=== PATIENT | female | born 1950 | race Hispanic/Latino ===

== ENCOUNTER 2017-07-31 12:23 | Outpatient (CLI) | payer MEDICARE ==
--- NOTE | 2017-07-31 16:51 | MMO ---
BILATERAL SCREENING MAMMOGRAMS: DATE: 07/31/17 Reference made to prior mammogram of 10/16/15. This patient's mammogram was interpreted with the assistance of computer-aided detection. FINDINGS: There is heterogeneously dense breast parenchyma bilaterally, which limits the sensitivity of mammog brayden. There are benign-appearing bilateral punctate breast calcifications, stable. No new dominant mass or suspicious clustering of microcalcification. IMPRESSION: BIRADS 2: Benign Finding(s) Annual screening mammography is recommended. POS: [facility]
== END 2017-07-31 12:24 | disposition home or self-care (01) ==
LOC: SCSMAMMO 12:23
PROVIDERS: ATTEND Family Medicine
DX: Z12.31 Encounter for screening mammogram for malignant neoplasm of breast (principal)
CPT/HCPCS: 77067; G0202

== ENCOUNTER 2017-10-14 13:47 | Outpatient (CLI) | payer MEDICARE ==
[~2017-10-14 13:47] MED LIST: Iopamidol 370 76% 100 ML VIAL ONE
--- NOTE | 2017-10-14 16:15 | CT ---
CT ARTERIOGRAM NECK WITH IV CONTRAST AND 3D MIP IMAGING: History: Vascular disease. Carotid stenosis. Abnormal sonogram. FINDINGS: Post-operative changes in the mediastinum are partially visualized. There is bovine origin of the gre at vessels at the aortic arch. There is calcification throughout the arterial structures. The vertebr al arteries are patent. Mild stenosis of the proximal left subclavian artery is evident. At the right carotid bifurcation, there is calcified and noncalcified plaque resulting in a long segm ent of approximately 50% stenosis. At the left carotid bifurcation, there is prominent calcified and noncalcified plaque with a long seg ment stenosis up to 80%. IMPRESSION: 1. Atherosclerosis with significant bilateral internal carotid artery stenoses, left greater than rig ht, as detailed above. POS: [facility]
== END 2017-10-14 13:48 | disposition home or self-care (01) ==
LOC: CT 13:47
PROVIDERS: ATTEND Thoracic Surgery (Cardiothoracic Vascular Surgery)
DX: I65.8 Occlusion and stenosis of other precerebral arteries (principal); I70.90 Unspecified atherosclerosis; I65.23 Occlusion and stenosis of bilateral carotid arteries
CPT/HCPCS: 70498

== ENCOUNTER 2017-10-30 05:47 | Inpatient (IN) | payer MEDICARE ==
[2017-10-30] MEDS ORDERED: CEFAZOLIN/Water 2 GM/20 ML SYRINGE ONE (06:13)
[2017-10-30] MEDS ORDERED: Heparin 5,000 UNITS/ML VIAL ONE (06:36)
[2017-10-30] MEDS ORDERED: Protamine Sulfate 50 MG/5 ML VIAL ONE ×2 (06:36→13:36)
[2017-10-30 06:51] LABS: Hemoglobin 13.3 g/dL (12.0-16.0); Mean Corpuscular HGB CONC 33.3 g/dL (32.0-36.0); Mean Corpuscular Hemoglobin 32.6 pg (27.0-31.0); Mean Platelet Volume 10.2 fL (7.4-10.4); Platelet Count 186 thou/uL (130-400); RBC Distribution Width 11.8 % (11.5-14.5); Red Blood Cell (RBC) Count 4.08 mill/uL (4.20-5.40); White Blood Cell (WBC) Count 7.6 thou/uL (4.8-10.8)
[2017-10-30] MEDS ORDERED: Midazolam HCl 2 mg/2 ml Vial ONE (07:05)
[2017-10-30 07:10] LABS: Anion Gap 17 mmol/L (10-20); BUN (Urea Nitrogen) 43 mg/dL (9.8-20.1); Calc. Creatinine Clearance 45 mL/min (70-130); Calcium 10.2 mg/dL (7.8-10.44); Carbon Dioxide 22 mmol/L (23-31); Chloride 101 mmol/L (98-107); Estimated GFR-MDRD 34; Glucose 171 mg/dL (80-115); Potassium 4.5 mmol/L (3.5-5.1); Sodium 135 mmol/L (136-145)
[2017-10-30] MEDS ORDERED: Fentanyl 100 MCG/2 ML VIAL ONE ×2 (07:40→10:25)
[2017-10-30] MEDS ORDERED: PHENYLEPHRINE-NS 100 MCG/ML 10 ML SYRINGE ONE ×2 (10:01→13:36)
[2017-10-30] MEDS ORDERED: Morphine Sulfate 2 MG/ML SYRINGE SLOW IVP PRN (10:12)
[2017-10-30] MEDS ORDERED: Promethazine HCl 25 MG/ML VIAL IM PRN ×2 (10:12→10:44)
[2017-10-30] MEDS ORDERED: Promethazine HCl 25 MG/ML VIAL SLOW IVP PRN (10:12)
[2017-10-30] MEDS ORDERED: Ondansetron HCl/PF 4 MG/2 ML Vial IVP PRN ×2 (10:12→10:44)
--- NOTE | 2017-10-30 10:15 | OP ---
PREOPERATIVE DIAGNOSIS: Severe left carotid artery stenosis. POSTOPERATIVE DIAGNOSIS: Severe left carotid artery stenosis. SURGEON: Thanh Delcid M.D. CITY PLANNING ENGINEER: None. COUNTS: Sponge and needle counts correct. ANESTHESIA: General. OPERATION PERFORMED: Left carotid endarterectomy with bovine pericardium patch angioplasty. FINDINGS AT OPERATION: Near occlusive plaque involving the bulb and proximal ICA. DESCRIPTION OF PROCEDURE: The patient was taken to the operating room. Following the induction of general endotracheal anesthesia, the patient was prepped and draped in the usual sterile fashion. Skin incision was made parallel to the anterior border of the sternocleidomastoid muscle and deepened through the subcutaneous tissues and platysma. Carotid sheath was entered, identifying the vagus nerve in its proper posterior position. Isolation of the CCA, ECA, and ICA was performed. As expected, she had a very deep neck and high bifurcation. Hypoglossal nerve was visualized, however, not manipulated. Common facial vein was divided between fine silk ties and Hemoclips. Heparin dose was given. Fine vascular clamps were applied to the above-mentioned vessels. Arteriotomy was created extending across the bulb and ICA to a point above the plaque. The #8 shunt was employed. Endarterectomy was then performed in standard fashion. An excellent feathering point was achieved in the ICA requiring no tacking sutures. Meticulous attention was made to retrieving all residual debris including before and after irrigation with heparinized saline. The arteriotomy was then closed with the bovine pericardium patch and running 6-0 Prolene suture. Prior to securing the patch the shunt was removed, the ICA backflushed, and the site again irrigated with heparinized saline. Clamps were removed from the ECA, CCA, and ICA in that order. Heparin was partially reversed with protamine. Copious irrigation was performed. Meticulous hemostasis was assured. Wound was then closed in layers with running 2-0 Vicryl sutures followed by skin closure with a 4-0 Vicryl subcuticular stitch. Dermabond was applied. The patient was subsequently awakened and taken to the recovery room. Blood loss negligible. MTDD
[2017-10-30] MEDS ORDERED: DOPamine 400 MG/D5W 250 ML 250 ML ONE (10:18)
[2017-10-30] MEDS ORDERED: Ondansetron HCl/PF 4 MG/2 ML Vial ONE (10:40)
[2017-10-30] MEDS ORDERED: Sodium Chloride 0.9% 1,000 ML IV SCH (10:44)
[2017-10-30] MEDS ORDERED: Fentanyl 100 MCG/2 ML VIAL SLOW IVP PRN ×2 (10:44)
[2017-10-30] MEDS ORDERED: Acetaminophen 325 MG TAB PO PRN (10:44)
[2017-10-30] MEDS ORDERED: DOPamine 400 MG/D5W 250 ML 250 ML IVPB PRN (10:44)
[2017-10-30] MEDS ORDERED: Nitroglycerin 50 MG/250 ML BOT 250 ML IVPB PRN (10:44)
[2017-10-30] MEDS ORDERED: hydrALAZINE 20 MG/ML VIAL SLOW IVP PRN (10:44)
[2017-10-30] MEDS ORDERED: Promethazine HCl 25 MG/ML VIAL ONE (10:51)
[2017-10-30] MEDS ORDERED: Morphine 4 MG/ML VIAL SLOW IVP PRN ×2 (12:15)
[2017-10-30] MEDS ORDERED: PROPOFOL 200 MG/20 ML VIAL ONE (13:36)
[2017-10-30] MEDS ORDERED: ePHEDrine/0.9% NaCl/PF SYRINGE 50 mg/10 ml ONE (13:36)
[2017-10-30] MEDS ORDERED: Lidocaine 1% PF 5 ML VIAL ONE (13:36)
[2017-10-30] MEDS ORDERED: Glycopyrrolate 0.2 MG/ML 5 ML SYRINGE ONE (13:36)
[2017-10-30] MEDS ORDERED: CEFAZOLIN/Water 2 GM/20 ML SYRINGE SLOW IVP SCH (14:00)
[2017-10-30 14:34] VITALS: BMI 37.3
[2017-10-30] MEDS: Phenylephrine 10 MG/NS 250 ML 250 ML IVPB PRN (15:21)
[2017-10-30] MEDS: CEFAZOLIN/Water 2 GM/20 ML SYRINGE SLOW IVP SCH (15:21)
[2017-10-30] MEDS: metFORMIN 500 MG TAB PO SCH (17:23)
[2017-10-30] MEDS ORDERED: Insulin Regular 300 UNITS/3 ML VIAL ONE (17:25)
[2017-10-30] MEDS: Insulin Regular 300 UNITS/3 ML VIAL SC PRN ×2 (17:26→21:15)
[2017-10-30] MEDS: HYDROcodone/Acetaminophen 5/325 mg Tablet PO PRN (19:47)
[2017-10-30] MEDS ORDERED: Atorvastatin Calcium 10 MG TAB PO SCH (21:00)
[2017-10-30] MEDS: Carvedilol 6.25 MG TAB PO SCH (21:08)
[2017-10-31] MEDS: CEFAZOLIN/Water 2 GM/20 ML SYRINGE SLOW IVP SCH ×2 (00:39→08:04)
[2017-10-31] MEDS: HYDROcodone/Acetaminophen 5/325 mg Tablet PO PRN ×4 (00:42→12:24)
[2017-10-31] MEDS: Phenylephrine 10 MG/NS 250 ML 250 ML IVPB PRN (00:45)
[2017-10-31] MEDS ORDERED: Levothyroxine 150 MCG TAB PO SCH (06:00)
[2017-10-31] MEDS: Insulin Regular 300 UNITS/3 ML VIAL SC PRN (06:01)
[2017-10-31] MEDS ORDERED: Gemfibrozil 600 MG TAB PO SCH (07:30)
[2017-10-31] MEDS ORDERED: glipiZIDE 5 MG TAB PO SCH (07:30)
[2017-10-31] MEDS: metFORMIN 500 MG TAB PO SCH (08:00)
[2017-10-31] MEDS ORDERED: Lisinopril 5 MG TAB PO SCH (09:00)
[2017-10-31] MEDS ORDERED: Multivit, Therapeutic 1 TAB PO SCH (09:00)
[2017-10-31] MEDS ORDERED: Clopidogrel Bisulfate 75 MG TAB PO SCH (09:00)
[2017-10-31] MEDS ORDERED: Aspirin 325 mg Enteric Coated Tablet PO SCH (09:00)
[2017-10-31] MEDS ORDERED: Aspirin 325 MG TAB PO SCH (09:00)
[2017-10-31] MEDS ORDERED: ISOSORBIDE DINITRATE 120 MG PO SCH (09:00)
[2017-10-31] MEDS ORDERED: NPH, Human Insulin Isophane 300 UNIT/3 ML VIAL SC SCH (09:00)
[2017-10-31] MEDS ORDERED: Furosemide 40 MG TAB PO SCH (09:00)
[2017-10-31] MEDS ORDERED: GEMFIBROZIL PO SCH (09:00)
[2017-10-31] MEDS: Carvedilol 6.25 MG TAB PO SCH (09:03)
[2017-10-31 12:16] VITALS: TEMP 98.2
--- NOTE | 2017-10-31 14:25 | DIS ---
REASON FOR ADMISSION: Left carotid endarterectomy. CLINICAL RESUME: The patient is a 66-year-old female found to have an 80% left ICA stenosis. Recommendation was made to proceed with elective left CEA. Yesterday, the patient was admitted and underwent left CEA with bovine pericardium patch angioplasty. See operative report for details. Her postoperative course was noteworthy for initial low blood pressures requiring transient support with both dopamine and doyle-synephrine. Preoperative systolic blood pressure was 94 with recent office systolic blood pressure 98. She is on an extensive anti-hypertensive regimen. These meds have been largely held. Today, her blood pressure has risen to 135/60. She is considered stable for discharge at this time. She has been instructed to check her blood pressure frequently and initially resume her blood pressure meds at half their regular doses. Follow up will be arranged in our office in 2 weeks or sooner p.r.n. She is to follow up with her primary doctor and axle bearing polisher in reference to her blood pressure and blood pressure medical management. ACTIVITY: Activity light for the next 4-5 days. DIET: 1800 calorie ADA. Wound care as instructed. DISCHARGE MEDICATIONS: She is to resume her home regimen with the instructions as provided above involving her blood pressure medications. Her home regimen does include a daily 325 mg aspirin tablet. Due to her mild renal insufficiency Plavix 75 mg at 1/2 tab daily has been added for the next 30 days only. ADDITIONAL NEW MEDICATION: Glady 5/325 mg 1-2 q.4-6 hours p.r.n. MTDD
--- NOTE | 2017-11-06 19:35 | EKG ---
Test Reason : PREOP Blood Pressure : / mmHG Vent. Rate : 071 BPM Atrial Rate : 071 BPM P-R Int : 162 ms QRS Dur : 098 ms QT Int : 406 ms P-R-T Axes : 045 039 060 degrees QTc Int : 441 ms Normal sinus rhythm Possible Inferior infarct , age undetermined Abnormal ECG When compared with ECG of 20-JUL-2015 14:08, QRS duration has increased Borderline criteria for Inferior infarct are now Present Confirmed by KARYN SEVILLA (2) on 11/06/2017 7:35:04 PM Referred By: JONY Confirmed By:KARYN SEVILLA
== END 2017-10-31 13:50 | disposition home or self-care (01) | DRG 39 ==
LOC: SURG A 05:47 → CCU 13:31
PROVIDERS: ADMIT Thoracic Surgery (Cardiothoracic Vascular Surgery); ATTEND Thoracic Surgery (Cardiothoracic Vascular Surgery)
PROC: 03CL0ZZ Extirpation of Matter from Left Internal Carotid Artery, Open Approach (ICD-10-PCS; principal; 2017-10-30)
PROC: 03UL0KZ Supplement Left Internal Carotid Artery with Nonautologous Tissue Substitute, Open Approach (ICD-10-PCS; 2017-10-30)
DX: I65.22 Occlusion and stenosis of left carotid artery (principal); E03.9 Hypothyroidism, unspecified; I10 Essential (primary) hypertension; E78.2 Mixed hyperlipidemia; I25.119 Atherosclerotic heart disease of native coronary artery with unspecified angina pectoris; Z79.84 Long term (current) use of oral hypoglycemic drugs; Z79.82 Long term (current) use of aspirin; Z87.891 Personal history of nicotine dependence
CPT/HCPCS: 36416; 80048; 85027; 93005; 93010; 94640; J1265; J1642; J1644; J1815; J2001; J2250; J2370; J2405; J2550; J2704; J2720; J3010; J7050; J7620

== ENCOUNTER 2017-12-10 11:58 | Outpatient (CLI) | payer MEDICARE ==
[~2017-12-10 11:58] MED LIST changes: -Iopamidol 370 76% 100 ML VIAL ONE; +Magnevist 469MG/ML 20 ML VIAL ONE
--- NOTE | 2017-12-10 15:49 | MRI ---
EXAM: BRAIN MRI WITH AND WITHOUT CONTRAST 12/10/17 HISTORY: Unequal pupils, left pupil is bigger than the contralateral pupil and nonreactive. Symptoms have been present for a year. COMPARISON: None. TECHNIQUE: Brain MRI is performed with and without intravenous gadolinium administration. Multisequential, multi planar imaging is performed. FINDINGS: No hemorrhage on the axial gradient echo sequence. No parenchymal mass, mass effect, or midline shift . Brain volume is age appropriate. Cortical brown-white matter differentiation is preserved. Ventricle s and sulci are patent and symmetric. T2 and FLAIR white matter hyperintensity due to chronic small v essel ischemic change. There is adequate aeration of the sinuses and mastoid air cells. Calvarium has an appropriate T1 marrow signal intensity. Midline brain parenchymal structures are unr emarkable. Central arterial flow voids are maintained. Absent restricted diffusion. No pathologic enh ancement of the brain parenchyma. IMPRESSION: 1. Age appropriate atrophy. Chronic small vessel ischemic change of the white matter. 2. Central arterial flow voids are maintained. Absent restricted diffusion. No pathologic enhanc ement of the brain parenchyma. POS: [facility]
== END 2017-12-10 11:59 | disposition home or self-care (01) ==
LOC: SCSMRI 11:58
PROVIDERS: ATTEND Family Medicine
DX: H57.02 Anisocoria (principal); R90.89 Other abnormal findings on diagnostic imaging of central nervous system
CPT/HCPCS: 70553; A9579

== ENCOUNTER 2018-03-15 20:01 | Observation (INO) | payer MEDICARE ==
[2018-03-15 21:12] LABS: Bilirubin Small (Negative); Blood, Urine Negative (Negative); Clarity CLOUDY (Clear); Glucose, Urine (Dipstick) Negative (Negative); Leukocyte Small (Negative); Nitrite Negative (Negative); Protein, Urine (Dipstick) 100 mg/dL (Neg-Trace); Specific Gravity, Urine 1.025 (1.002-1.036)
[2018-03-15 21:14] LABS: Bacteria/HPF None Seen HPF (None Seen)
[2018-03-15 21:15] LABS: Pathc Cast-AUWi Flag 34.16 (0-2.49); Yeast-AUWi Flag 28.2 (0-25.0)
[2018-03-15 21:23] LABS: RBC/HPF 0-3 HPF (0-3)
[2018-03-15 21:24] LABS: Crystals/HPF 2+ CA OXALATE HPF (Negative); Renal Epithelial 0-3 HPF (0-3); Squamous Epithelial 0-3 HPF (0-3); Transitional Epithelial 0-3 HPF (0-3)
[2018-03-15 21:27] LABS: Hyaline Casts/LPF >50 HYALINE CAST LPF (0-3 Hyaline)
[2018-03-15 21:43] LABS: #Basophils 0.1 thou/uL (0.0-0.2); #Eosinphils 0.3 thou/uL (0.0-0.7); #Lymphocytes 3.3 thou/uL (1.20-3.40); #Neutrophils 7.4 thou/uL (1.40-6.50); %Basophils 0.5 % (0.0-1.0); %Eosinophils 2.2 % (0.0-10.0); %Lymphocytes 27.2 % (21.0-51.0); %Monocytes 8.5 % (0.0-10.0); %Neutrophils 61.5 % (42.0-75.0); Hemoglobin 13.2 g/dL (12.0-16.0); Mean Corpuscular HGB CONC 34.8 g/dL (32.0-36.0); Mean Corpuscular Volume 94.7 fl (81.0-99.0); Mean Platelet Volume 9.5 fL (7.4-10.4); Platelet Count 217 thou/uL (130-400); RBC Distribution Width 12.6 % (11.5-14.5); Red Blood Cell (RBC) Count 4.01 mill/uL (4.20-5.40)
[2018-03-15 21:59] LABS: ALT (SGPT) 13 U/L (8-55); AST (SGOT) 19 U/L (5-34); Albumin 4.2 g/dL (3.4-4.8); Alkaline Phosphatase 108 U/L (40-150); Anion Gap 14 mmol/L (10-20); BUN (Urea Nitrogen) 34 mg/dL (9.8-20.1); Bilirubin, Total 0.6 mg/dL (0.2-1.2); Calc. Creatinine Clearance 0 mL/min (70-130); Calcium 10.9 mg/dL (7.8-10.44); Carbon Dioxide 24 mmol/L (23-31); Chloride 103 mmol/L (98-107); Estimated GFR-MDRD 32; Globulin 3.4 g/dL (2.4-3.5); Glucose 84 mg/dL (80-115); Potassium 4.1 mmol/L (3.5-5.1); Protein, Total 7.6 g/dL (6.0-8.3); Sodium 137 mmol/L (136-145)
[2018-03-15] MEDS ORDERED: cefTRIAXone\\ROCEPHIN 1 GM VIAL ONE (22:47)
--- NOTE | 2018-03-15 23:03 | CT ---
CT BRAIN: History: Altered mental status. Noncontrast enhanced CT images of the brain were obtained. Date: 03-15-18 Comparison: 06-27-15 FINDINGS: The brain is unremarkable. No evidence of intracranial masses, hemorrhages, strokes or contusions see n. IMPRESSION: Normal CT brain. POS: [facility]
[2018-03-16] MEDS ORDERED: Ondansetron HCl/PF 4 MG/2 ML Vial IVP PRN ×2 (01:02→08:21)
[2018-03-16] MEDS ORDERED: Ondansetron ODT 4 MG TAB SL PRN (01:02)
[2018-03-16] MEDS ORDERED: Acetaminophen 325 MG TAB PO PRN ×2 (01:02→08:21)
[2018-03-16 01:22] VITALS: BMI 35.9
[2018-03-16] MEDS ORDERED: Dextrose 50% Abboject 50 ML SYRINGE SLOW IVP PRN (08:21)
[2018-03-16] MEDS ORDERED: Ondansetron ODT 4 MG TAB PO PRN (08:21)
[2018-03-16] MEDS ORDERED: Dextrose 5% in Water 1,000 ML IV PRN (08:21)
[2018-03-16] MEDS ORDERED: HumaLOG 300 UNITS/3 ML VIAL SC PRN (08:21)
[2018-03-16] MEDS ORDERED: Enoxaparin Sodium 30 MG/0.3 ML SYRINGE SC SCH (08:45)
[2018-03-16 09:03] LABS: #Basophils 0.1 thou/uL (0.0-0.2); #Eosinphils 0.2 thou/uL (0.0-0.7); #Lymphocytes 2.4 thou/uL (1.20-3.40); #Monocytes 0.7 thou/uL (0.11-0.59); #Neutrophils 4.3 thou/uL (1.40-6.50); %Basophils 0.9 % (0.0-1.0); %Eosinophils 2.8 % (0.0-10.0); %Lymphocytes 31.4 % (21.0-51.0); %Monocytes 8.7 % (0.0-10.0); %Neutrophils 56.3 % (42.0-75.0); Hemoglobin 12.6 g/dL (12.0-16.0); Mean Corpuscular HGB CONC 33.2 g/dL (32.0-36.0); Mean Corpuscular Hemoglobin 31.6 pg (27.0-31.0); Mean Corpuscular Volume 95.2 fl (81.0-99.0); Mean Platelet Volume 9.4 fL (7.4-10.4); Platelet Count 177 thou/uL (130-400); RBC Distribution Width 12.7 % (11.5-14.5); Red Blood Cell (RBC) Count 3.98 mill/uL (4.20-5.40); White Blood Cell (WBC) Count 7.7 thou/uL (4.8-10.8)
[2018-03-16 09:18] LABS: Anion Gap 11 mmol/L (10-20); BUN (Urea Nitrogen) 33 mg/dL (9.8-20.1); Calc. Creatinine Clearance 64 mL/min (70-130); Calcium 9.9 mg/dL (7.8-10.44); Carbon Dioxide 23 mmol/L (23-31); Chloride 104 mmol/L (98-107); Estimated GFR-MDRD 52; Glucose 136 mg/dL (80-115); Magnesium 1.8 mg/dL (1.6-2.6); Potassium 4.3 mmol/L (3.5-5.1); Sodium 134 mmol/L (136-145)
[2018-03-16 09:23] LABS: CKMB 1.4 ng/mL (0-6.6); Troponin I Less than 0.010 ng/mL (< 0.028)
[2018-03-16] MEDS: Famotidine 20 MG TAB PO SCH ×2 (09:29→21:12)
[2018-03-16] MEDS: Sodium Chloride 0.9% 1,000 ML IV SCH ×2 (09:30→21:12)
--- NOTE | 2018-03-16 09:39 | HP ---
PRIMARY CARE PHYSICIAN: Dr. Ribeiro PRIMARY PULVERIZING AND SIFTING OPERATOR: Dr. Eric Maurer TIME OF SERVICE: 0840 CHIEF COMPLAINT: Confusion. HISTORY OF PRESENT ILLNESS: Ms. Garner is a pleasant 67-year-old female with a history of diabetes m ellitus type 2, insulin-dependent, hypothyroidism, hypertension, hyperlipidemia, coronary artery dise ase, and severe obesity with a BMI between 35 and 40, who presents to the emergency department on . The patient states she had laid down for a nap. When she got up, she was confused and could not rhonda mber what had happened earlier in the day. This lasted for a period of approximately 2 hours. She h ad no focal neurologic deficits or dysarthria. No slurred speech, no weakness or coordination proble msKalyn She also relates a history of the day prior of tripping or slipping on something that was slippery an d falling in her house and hitting her head. She had no evidence of memory lapses after that episode . She presented to the emergency department for evaluation. At that time she was back to her baseline. CT scan of the head was negative. Her labs were unremarkable. Her sugar was in the 70s on EMS arr ival, 84 on a chemistry check and in the 120s post-treatment. Electrolytes were normal. White count barely elevated at 12.0. She had no biomarkers drawn and we were called for admission. The patient was accepted by the vice president investor relations and transferred to the observation floor. I am seeing her for workup. Since that time, she had a slight headache now. She has no fevers or chills, had a little bit of sesar sea overnight, but no vomiting. No cough or sputum production. She has had no chest discomfort sinc e admission. When asked about chest discomfort prior, she did have a little bit of chest discomfort a couple of days ago. It was not associated with palpitations. In the emergency department she was given a half liter normal saline and a dose of Rocephin and we we re again called for admit. PAST MEDICAL HISTORY: 1. Diabetes mellitus type 2, insulin-dependent. Per ER notes, the patient said her last hemoglobin A1c was around 7. 2. Hypothyroidism on replacement. 3. Hypertension, essential. 4. Hyperlipidemia. 5. Obesity. 6. Coronary artery disease. PAST SURGICAL HISTORY: 1. Coronary bypass grafting x3 vessels in 2009. 2. Bilateral tubal ligation remotely. 3. Right oophorectomy. 4. x2 remotely. 5. Hysterectomy. 6. Carotid endarterectomy. 7. Salivary gland removal. HOME MEDICATIONS: 1. Insulin 70/30, 70 units subcu b.i.d. 2. Coreg 6.25 mg p.o. b.i.d. 3. Super B complex vitamin daily. 4. Aspirin 325 mg daily. 5. Gemfibrozil daily. 6. Lasix 40 mg p.o. p.r.n. swelling. 7. Levothyroxine 150 mcg daily. 8. Isosorbide dinitrate 120 mg p.o. daily. 9. Metformin 1000 mg p.o. b.i.d. 10. Pravachol 80 mg p.o. at bedtime. 11. Lisinopril 10 mg p.o. q.a.m. 12. Multivitamin daily. ALLERGIES: NKDA. FAMILY HISTORY: Negative for clotting or bleeding disorder. No immune dysfunction, no premature cor onary disease. She has obesity, high blood pressure and diabetes in her family. SOCIAL HISTORY: Negative for tobacco. She quit that about 3-4 years ago. REVIEW OF SYSTEMS: All systems were reviewed and negative except listed as per HPI. The last echoca rdiogram she thinks was over a year ago with Dr. Maurer. PHYSICAL EXAMINATION: VITAL SIGNS: Temperature 98.7, pulse 92, blood pressure 130/78, respiratory rate 16, satting 95% on room air. Orthostatics were done this morning that were unremarkable. GENERAL: She is awake and alert. She is in no distress. She is an obese female who is resting comfortably. HEENT: Normocephalic, atraumatic. Pupils are equal, round, reactive to light bilaterally, mucous me mbranes moist. No visible lesions. No thrush. NECK: Supple. No lymphadenopathy, no JVD, no thyromegaly. She had normal carotid upstrokes. I do not appreciate bruits. LUNGS: Clear. She has good air movement. Symmetrical chest excursion. No prolonged expiratory pha se. No wheezes, rales or rhonchi. CARDIOVASCULAR: Normal S1, S2. No S3, S4. No audible murmurs. ABDOMEN: Obese, it is nontender, nondistended. She has got good bowel sounds in all 4 quadrants. T here is no rebound, rigidity or guarding. She has no hepatosplenomegaly. EXTREMITIES: There is not cyanosis, clubbing, no edema. She has some superficial varicose veins pre sent. SKIN: Skin was otherwise warm, moist and well perfused. She has no rashes or lesions. MUSCULOSKELETAL: Normal to inspection. Large joints appeared normal. There is no evidence of infla mmation or palpable joint effusions. NEUROLOGIC: Cranial nerves II through XII are grossly intact. She has no focal neurologic deficits. She has normal speech pattern, 5/5 strength in all 4 extremities. LABORATORY DATA: Sodium on admission 137, potassium 4.1, chloride 103, bicarb 24, BUN 34, creatinine 1.60. Of note, her creatinine was 0.82 back in 12/2017, about 2 months ago. Calcium was 10.9, gluc ose of 84. Liver function completely within normal limits. CBC showed a white count of 12.8 with normal differential, hemoglobin 13.2, hematocrit 37.9, platelet count is 317,000. RADIOGRAPHIC STUDY: Chest x-ray unremarkable. CT scan of the brain normal. ASSESSMENT AND PLAN: 1. Confusion spell: This happened when she first woke up from a nap yesterday and lasted about 2 ho urs and has since resolved. She did describe chest pain a day or two ago. She also had a fall the d ay prior and hit her head on the floor. A CT scan of the brain is negative. Certainly could represe nt a postconcussive type syndrome; however, she is regaining her memory back just fine. We will get serial cardiac biomarkers to rule out any cardiac ischemia. She had a normal telemetry overnight. R epeat her labs this morning after she gets normal saline and has been eating and drinking. If doing well this afternoon may be able to go home. 2. Acute kidney injury. Creatinine 0.82 two months ago, 1.6 today. BUN is elevated at 34, which is greater than 20:1 ratio. We will start some fluids now and monitor her output. 3. History of coronary artery disease. Unknown cardiac function. We will get a 2-D echocardiogram. 4. Diabetes mellitus type 2, she is on diabetic diet, q.i.d. a.c. and at bedtime Accu-Cheks with a h igh dose sliding scale. We will likely resume her home 70/30. 5. Hypothyroidism on replacement. We will continue levothyroxine. 6. Hypertension, essential, on Coreg, p.r.n. Lasix and lisinopril, we will continue. 7. Severe obesity. 8. Coronary artery disease as above.
[2018-03-16] MEDS: HumaLOG 300 UNITS/3 ML VIAL SC PRN ×2 (12:15→16:52)
[2018-03-16 17:11] LABS: CKMB 1.7 ng/mL (0-6.6); Troponin I Less than 0.010 ng/mL (< 0.028)
[2018-03-17 00:47] LABS: CKMB 1.5 ng/mL (0-6.6); Troponin I Less than 0.010 ng/mL (< 0.028)
[2018-03-17] MEDS: Sodium Chloride 0.9% 1,000 ML IV SCH (04:28)
[2018-03-17] MEDS: HumaLOG 300 UNITS/3 ML VIAL SC PRN (05:16)
[2018-03-17] MEDS ORDERED: Furosemide 40 MG TAB PO SCH (07:15)
[2018-03-17] MEDS ORDERED: metFORMIN 500 MG TAB PO SCH (08:00)
[2018-03-17] MEDS ORDERED: Non-Formulary Item 1 EACH (Metformin Hcl [Metformin Hcl] 1,000 MG) PO SCH (08:00)
[2018-03-17 08:08] VITALS: BP 135/66; TEMP 98.8
--- NOTE | 2018-03-17 08:28 | DIS ---
PRIMARY CARE PHYSICIAN: Dr. Jose Ribeiro PRIMARY DIRECTOR OF ENTERPRISE APPLICATIONS: Dr. Eric Maurer DATE OF ADMISSION: 03/16/2018 DATE OF DISCHARGE: 03/17/2018 DISCHARGE DIAGNOSES: 1. Transient confusion. 2. Possible hypoglycemia. 3. Diabetes mellitus type 2. 4. Fall from same level. 5. Hypothyroidism. 6. Hypertension, essential. 7. Hyperlipidemia. 8. Obesity. 9. History of coronary artery disease. 10. Acute kidney injury, resolved. 11. Dehydration, resolved. CONSULTATIONS: None. PROCEDURES: 2D echocardiogram on 03/16/2018 that showed an EF of 60-65%, mild tricuspid regurgitatio n and some diastolic dysfunction. HOSPITAL COURSE: Ms. Garner is a 67-year-old female who presented to the emergency department after waking up from a nap with confusion on 03/15/2018 after about 2 hours of progressive improvement she was able to recall events. She was taken to the emergency department for evaluation. On transport b y EMS, her glucose was 72. She remained in a normal glucose range in the ER. Workup was otherwise n egative. We were called for admission. The patient was accepted by the hard rock miner blasting overnight. I admitted her formally in the morning. She h ad serial cardiac biomarkers done. HOSPITAL COURSE: The patient was seen by me in the morning. Serial cardiac biomarkers were obtained that were negative. A 2D echocardiogram was done with the above findings. Sugars were above her no rmal due to lack of not getting her 70/30 while we were watching. Sugars remained normal. Blood pre ssure remained normal, vitals remained normal. No events on telemetry. Overnight 03/16/2018 to 02/25 she did well and was otherwise stable for discharge with outpatient followup. PHYSICAL EXAMINATION: The patient was seen and examined on the day of discharge. Discharge plan and disposition was discussed with the patient face to face at bedside. DISCHARGE MEDICATIONS: 1. Insulin 70/30, 72 units subcu b.i.d. 2. Coreg 6.25 mg p.o. b.i.d. 3. Lasix 40 mg p.o. 3 times a week. 4. Gemfibrozil 600 mg daily. 5. Aspirin 325 mg daily. 6. Levothyroxine 150 mcg daily. 7. Isosorbide dinitrate 120 mg p.o. daily. 8. Lisinopril 10 mg p.o. q.a.m. 9. Metformin 1000 mg p.o. b.i.d. 10. Multivitamin daily. 11. Pravachol 80 mg p.o. at bedtime. 12. Vitamin B. DISCHARGE INSTRUCTIONS: 1. Followup: Follow up with Dr. Ribeiro within a week. 2. Follow up with Dr. Maurer in 2-3 weeks. DISCHARGE ACTIVITY: Per cardiopulmonary limits. DISCHARGE DIET: Heart healthy diabetic diet recommended. DISCHARGE CONDITION: Stable. DISPOSITION: Being discharged home via private vehicle.
[2018-03-17] MEDS: Famotidine 20 MG TAB PO SCH (08:33)
[2018-03-17] MEDS ORDERED: Lisinopril 5 MG TAB PO SCH (09:00)
[2018-03-17] MEDS ORDERED: Multivit, Therapeutic 1 TAB PO SCH (09:00)
[2018-03-17] MEDS ORDERED: Lisinopril 10 MG TAB PO SCH (09:00)
[2018-03-17] MEDS ORDERED: ISOSORBIDE DINITRATE 120 MG PO SCH (09:00)
[2018-03-17] MEDS ORDERED: Gemfibrozil 600 MG TAB PO SCH ×2 (09:00)
[2018-03-17] MEDS ORDERED: Isosorbide Dinitrate 20 MG TAB PO SCH (09:00)
[2018-03-17] MEDS ORDERED: Carvedilol 6.25 MG TAB PO SCH (09:00)
[2018-03-17] MEDS ORDERED: Aspirin 325 MG TAB PO SCH (09:00)
[2018-03-17] MEDS ORDERED: Insulin NPH/Reg Insulin Hm 300 UNITS/3 ML VIAL SC SCH ×2 (09:00)
[2018-03-17] MEDS ORDERED: Non-Formulary Item 1 EACH (Multivitamin [Multi-Vitamin Daily] 1 TAB) PO SCH (09:00)
--- NOTE | 2018-03-17 12:46 | EKG ---
Test Reason : CONFUSION Blood Pressure : / mmHG Vent. Rate : 085 BPM Atrial Rate : 085 BPM P-R Int : 150 ms QRS Dur : 086 ms QT Int : 370 ms P-R-T Axes : 025 015 102 degrees QTc Int : 440 ms Normal sinus rhythm Possible Lateral infarct , age undetermined Inferior infarct , age undetermined Abnormal ECG Confirmed by YOLANDE MCGARRY, KEILA ([id number]), editor in chief newspaper RAOUL REYES ([id number]) on 03/17/2018 12:45:52 PM Referred By: Confirmed By:KEILA LANIER MD
[2018-03-17] MEDS ORDERED: Pravastatin Sodium 40 MG TAB PO SCH (21:00)
[2018-03-17] MEDS ORDERED: Atorvastatin Calcium 20 MG TAB PO SCH (21:00)
[2018-03-18] MEDS ORDERED: Levothyroxine 150 MCG TAB PO SCH (06:00)
[2018-03-18] MEDS ORDERED: Furosemide 40 MG TAB PO SCH (09:00)
== END 2018-03-17 10:04 | disposition home or self-care (01) ==
LOC: ERS 20:01 → 2SW 23:00
PROVIDERS: ADMIT Internal Medicine; ATTEND Internal Medicine
DX: R41.0 Disorientation, unspecified (principal); E11.9 Type 2 diabetes mellitus without complications; E03.9 Hypothyroidism, unspecified; I10 Essential (primary) hypertension; E78.5 Hyperlipidemia, unspecified; N17.9 Acute kidney failure, unspecified; E86.0 Dehydration; I25.10 Atherosclerotic heart disease of native coronary artery without angina pectoris; E66.01 Morbid (severe) obesity due to excess calories; Z79.82 Long term (current) use of aspirin; Z79.4 Long term (current) use of insulin; Z79.899 Other long term (current) drug therapy; Z68.35 Body mass index [BMI] 35.0-35.9, adult; Z87.891 Personal history of nicotine dependence; W18.30XA Fall on same level, unspecified, initial encounter
CPT/HCPCS: 51701; 70450; 80048; 80053; 82553 ×3; 82962 ×2; 83735; 84484 ×3; 85025 ×2; 93005; 93306; 96361 ×3; 96365; 96372; 99285; G0378; 36415; 36416; 81003; 81015; A4353; J0696; J1650

== ENCOUNTER 2018-04-06 10:02 | Outpatient (CLI) | payer MEDICARE ==
--- NOTE | 2018-04-06 15:00 | MRI ---
MRI LUMBAR SPINE WITHOUT CONTRAST: Date: 04-06-18 Comparison: 08-11-15 History: Chronic low back pain radiating down both legs. Technique: Multiplanar, multisequence MR imaging of the lumbar spine is provided without contrast. FINDINGS: The sagittal STIR imaging demonstrates no focal area of osseous marrow edema. There is an anterior we dge compression fracture at the L1 level with approximately 60% loss of vertebral body height anterio rly. This fracture is remote, present on the 2015 examination, with a similar degree of vertebral bod y height loss. No acute fracture is evident. On the basis of five lumbar type vertebral bodies, the c onus medullaris terminates at the L1-2 level. T12-L1: There is disc space narrowing and disc desiccation. There is no significant central canal or neural foraminal stenosis. There is stable mild retropulsion at the L1 fracture with associated stabl e mild central canal stenosis at the L1 level. L1-2: There is mild bilateral facet hypertrophy. Intervertebral disc height and signal intensity is g rossly unremarkable with no significant central canal or neural foraminal stenosis. L2-3: Mild bilateral facet hypertrophy. There is disc desiccation and mild disc space narrowing with no significant central canal or neural foraminal stenosis. L3-4: There is bilateral facet hypertrophy. There is disc space narrowing, disc desiccation, and mild disc bulge. There is mild bilateral neural foraminal stenosis. No significant central canal stenosis . L4-5: There is bilateral facet hypertrophy with a mild degree of neural foraminal stenosis bilaterall y. No significant central canal stenosis. L5-S1: There is prominent bilateral facet hypertrophy. There is disc space narrowing and disc desicca tion. There is a small foraminal disc protrusion on the right. There is no significant central canal stenosis. There is mild/moderate bilateral neural foraminal stenosis, right greater than left. Scattered T2 hyperintense lesions are seen within both kidneys suggesting bilateral cysts. Imaged ret roperitoneal structures grossly unremarkable otherwise. IMPRESSION: Degenerative change within the lumbar spine as described above. POS: [facility]
== END 2018-04-06 10:03 | disposition home or self-care (01) ==
LOC: SCSMRI 10:02
PROVIDERS: ATTEND Physical Medicine & Rehabilitation
DX: M47.897 Other spondylosis, lumbosacral region (principal)
CPT/HCPCS: 72148

== ENCOUNTER 2019-04-04 09:32 | Inpatient (IN) | payer MEDICARE ==
--- NOTE | 2019-04-04 10:27 | RAD ---
XR Chest 1 View Portable History: Altered mental status Comparison: Radiograph 2014 Findings: Lungs are mildly hypoinflated. Multiple midline sternotomy wires. No pneumothorax. Mild pul monary venous congestion. Heart size mildly enlarged. No acute osseous abnormality. Impression: Mild lung hypoinflation and pulmonary venous congestion.
[2019-04-04 10:31] LABS: #Basophils 0.1 thou/uL (0.0-0.2); #Eosinphils 0.3 thou/uL (0.0-0.7); #Lymphocytes 2.3 thou/uL (1.20-3.40); #Monocytes 0.7 thou/uL (0.11-0.59); #Neutrophils 6.6 thou/uL (1.40-6.50); %Basophils 0.5 % (0.0-1.0); %Eosinophils 2.9 % (0.0-10.0); %Lymphocytes 23.2 % (21.0-51.0); %Monocytes 7.2 % (0.0-10.0); %Neutrophils 66.2 % (42.0-75.0); Hemoglobin 12.6 g/dL (12.0-16.0); Mean Corpuscular HGB CONC 33.7 g/dL (32.0-36.0); Mean Corpuscular Hemoglobin 32.6 pg (27.0-31.0); Mean Corpuscular Volume 96.7 fL (78.0-98.0); Platelet Count 187 thou/uL (130-400); Red Blood Cell (RBC) Count 3.86 mill/uL (4.20-5.40); White Blood Cell (WBC) Count 9.9 thou/uL (4.8-10.8)
--- NOTE | 2019-04-04 10:37 | CT ---
CT Brain WO Con History: Altered mental status Comparison: CT brain February 2018 Findings: No acute hemorrhage or infarct. No midline shift or mass effect. Ventricular size and extra -axial CSF spaces are normal. Calvarium is intact. Paranasal sinuses and mastoids are clear. Impression: No acute intracranial abnormality.
[2019-04-04] MEDS ORDERED: Meclizine HCl 25 MG TAB ONE (10:50)
[2019-04-04 11:04] LABS: ALT (SGPT) 13 U/L (8-55); AST (SGOT) 24 U/L (5-34); Albumin 4.3 g/dL (3.4-4.8); Alkaline Phosphatase 82 U/L (40-150); Anion Gap 18 mmol/L (10-20); BUN (Urea Nitrogen) 73 mg/dL (9.8-20.1); Bilirubin, Total 0.7 mg/dL (0.2-1.2); CK (CPK) 215 U/L (29-168); Calc. Creatinine Clearance 0 mL/min (70-130); Calcium 10.2 mg/dL (7.8-10.44); Carbon Dioxide 19 mmol/L (23-31); Chloride 99 mmol/L (98-107); Estimated GFR-MDRD 15; Globulin 3.2 g/dL (2.4-3.5); Glucose 69 mg/dL (80-115); Lipase 15 U/L (8-78); Potassium 6.1 mmol/L (3.5-5.1); Protein, Total 7.5 g/dL (6.0-8.3); Sodium 130 mmol/L (136-145)
[2019-04-04] MEDS ORDERED: Dextrose 50% Abboject 50 ML SYRINGE ONE (11:13)
[2019-04-04] MEDS ORDERED: Sodium Bicarb 50 MEQ/50 ML Abboject 8.4% SYRINGE ONE (11:53)
[2019-04-04] MEDS ORDERED: Calcium Gluc 4.6 MEQ/10 ML (100 MG/ML) ONE (11:56)
[2019-04-04] MEDS ORDERED: Calcium Chloride 1 GM/10 ML Abboject SYRINGE ONE ×3 (11:59→13:58)
[2019-04-04 13:52] LABS: Bilirubin Negative (Negative); Blood, Urine Negative (Negative); Clarity CLEAR (Clear); Glucose, Urine (Dipstick) Negative (Negative); Leukocyte Negative (Negative); Nitrite Negative (Negative); Protein, Urine (Dipstick) Negative (Neg-Trace); Specific Gravity, Urine 1.009 (1.002-1.036); Urobilinogen 0.2 mg/dL (0.2-1.0); pH, Urine 5.5 (5.0-9.0)
[2019-04-04] MEDS ORDERED: Heparin 10,000 UNITS/ 10 ML VIAL ONE (15:00)
[2019-04-04 16:01] LABS: HBSAB Concentration 1.64 mIU/mL; HBSAg Index 0.26 S/CO (0-0.99); Hep B Core Total Ab Non-Reactive (NonReactive); Hep B Core Total Index 0.06 S/CO (0-0.79); Hep B Surf AB Non-Reactive (NonReactive); Hep B Surf Ag Non-Reactive S/CO (NonReactive); Hep C IgG Ab Non-Reactive (NonReactive); Hep C Index 0.13 S/CO (0-0.79)
[2019-04-04] MEDS ORDERED: Ondansetron PF 4 MG/2 ML Vial IVP PRN (16:31)
[2019-04-04] MEDS ORDERED: Ondansetron ODT 4 MG TAB SL PRN (16:31)
--- NOTE | 2019-04-04 18:48 | CON ---
DATE OF CONSULTATION: 04/04/2019 REASON FOR CONSULTATION: Elevated creatinine. HISTORY OF PRESENT ILLNESS: This is a 68-year-old female with history of diabetes mellitus, proteinuria, and baseline creatinine of 1.1 in November of this year, who presented to the hospital not feeling well. The patient was dizzy. The patient had had pretty normal creatinine for the last 6 years. The patient was on an MICAH inhibitor. Denies any nausea, vomiting, or chest pain. PAST MEDICAL HISTORY: Significant for hypertension, anemia, CKD, multiple episodes of acute kidney injury in the past, hypothyroidism, coronary artery disease, CABG, tubal ligation, oophorectomy, , hysterectomy, and carotid endarterectomy. MEDICATIONS: Home medication list reviewed, hospital medication list reviewed. REVIEW OF SYSTEMS: A 15-point review of systems was performed and negative except for positives noted above. GENERAL: HEAD: NECK: No swelling or lumps. NOSE: No epistaxis or discharge. EYES: No diplopia or pain. RESPIRATORY: CARDIOVASCULAR: GASTROINTESTINAL: /STONE GLUER: MUSCULOSKELETAL: No joint pain. NEUROPSYCHIATIC SYSTEMS: No suicidal ideation. No ideation. SKIN: Denies any rash or ulcer. CONSTITUTIONAL: No fever or chills. PHYSICAL EXAMINATION: GENERAL: The patient is awake and alert. VITAL SIGNS: Afebrile, pulse 75, breathing 16, and blood pressure 120/70. GENERAL APPEARANCE AND MENTAL STATUS: Fair. HEAD/NECK: Normocephalic. Atraumatic. EYES: EOMI. No deformity. EARS: Clear. No ulcers. NOSE: Intact. No lesions. MOUTH: Clear. No discharge. THROAT: Clear. No exudate. LUNGS: Clear. No crackles. CARDIAC: S1, S2. No rub. ABDOMEN: Benign. Bowel sounds positive. GENITALIA/RECTUM: Theodore absent. BACK/EXTREMITIES: Edema 0+. NEUROLOGICAL: Alert and motor intact. SKIN: LYMPHATICS: LABORATORY DATA: Reviewed. ASSESSMENT AND RECOMMENDATIONS: 1. Acute kidney injury with chronic kidney disease, most likely because of acute tubular necrosis due to decreased or congestive heart failure or progressive diabetic disease. We will hold MICAH inhibitors. Avoid NSAID. Start the patient on hydration and plan emergent dialysis. 2. Hyperkalemia. Plan dialysis. 3. Metabolic acidosis. Hold metformin. 4. Anemia, stable. Medication based on GFR appropriate. Job ID: [id number]
[2019-04-04 19:22] LABS: #Basophils 0.1 thou/uL (0.0-0.2); #Eosinphils 0.1 thou/uL (0.0-0.7); #Lymphocytes 1.6 thou/uL (1.20-3.40); #Monocytes 0.7 thou/uL (0.11-0.59); #Neutrophils 4.6 thou/uL (1.40-6.50); %Basophils 0.9 % (0.0-1.0); %Eosinophils 1.8 % (0.0-10.0); %Lymphocytes 22.6 % (21.0-51.0); %Monocytes 10.3 % (0.0-10.0); %Neutrophils 64.6 % (42.0-75.0); Hemoglobin 11.2 g/dL (12.0-16.0); Mean Corpuscular HGB CONC 33.6 g/dL (32.0-36.0); Mean Corpuscular Hemoglobin 32.4 pg (27.0-31.0); Mean Corpuscular Volume 96.4 fL (78.0-98.0); Platelet Count 137 thou/uL (130-400); RBC Distribution Width 12.1 % (11.5-14.5); Red Blood Cell (RBC) Count 3.46 mill/uL (4.20-5.40); White Blood Cell (WBC) Count 7.1 thou/uL (4.8-10.8)
[2019-04-04] MEDS ORDERED: Vancomycin HCl 1 GM in Premix Bag 1 BAG IVPB SCH (19:30)
[2019-04-04] MEDS ORDERED: Sodium Chloride 0.9% 500 ML IVPB SCH (19:30)
[2019-04-04 19:47] LABS: Anion Gap 13 mmol/L (10-20); BUN (Urea Nitrogen) 32 mg/dL (9.8-20.1); Calc. Creatinine Clearance 56 mL/min (70-130); Calcium 9.9 mg/dL (7.8-10.44); Carbon Dioxide 23 mmol/L (23-31); Chloride 105 mmol/L (98-107); Estimated GFR-MDRD 40; Glucose 111 mg/dL (80-115); Potassium 4.4 mmol/L (3.5-5.1); Sodium 137 mmol/L (136-145)
[2019-04-04 19:49] LABS: Troponin I 0.015 ng/mL (< 0.028)
[2019-04-04] MEDS ORDERED: Dextrose 5% in Water 1,000 ML IV PRN (19:54)
[2019-04-04] MEDS ORDERED: HumaLOG 300 UNITS/3 ML VIAL SC PRN (19:54)
[2019-04-04] MEDS ORDERED: Dextrose 50% Abboject 50 ML SYRINGE SLOW IVP PRN (19:54)
[2019-04-04] MEDS: Sodium Chloride 0.9% 1,000 ML IV SCH (20:15)
--- NOTE | 2019-04-04 20:33 | PRG ---
DATE OF SERVICE: 04/04/2019 SUBJECTIVE: Ms. Garner is a very pleasant woman, who has never had renal disease by her history. She presented to the emergency room today after a fall. She said she got up today and felt dizzy and thought she had to go back to her bedroom and tripped over an extension cord in the house and fell. She did not felt any better after she fell and thought she should come to the hospital. Her lab work led to an admission to the critical care unit and placement of a dialysis catheter. PAST MEDICAL HISTORY: Remarkable for: 1. Hypertension. 2. Chronic kidney disease, although she denies being told she had an abnormal renal function in the past. Apparently, she had a creatinine of 1.1 earlier this year. 3. History of hypothyroidism. 4. History of coronary artery bypass grafting I believe in 2009. 5. History of an oophorectomy. 6. Status post hysterectomy. 7. History of carotid endarterectomy. SOCIAL HISTORY: She is nonsmoker, nondrinker, nondrug user. FAMILY HISTORY: Unknown. ALLERGIES: SHE HAS NO DRUG ALLERGIES. REVIEW OF SYSTEMS: Twelve-point review of systems completed, otherwise negative. She denies shortness of breath. PHYSICAL EXAMINATION: VITAL SIGNS: She is 4 feet 11 inches, 194, BMI is 39. Blood pressure is 90/50, heart rate 77, respiratory rate in the teens, oximetry is 97% on 2 L. HEENT: Pupils are equal. Sclerae is anicteric. NECK: Supple. LUNGS: Clear. HEART: Regular rhythm. I do not hear murmur or gallop. ABDOMEN: Soft and nontender. No masses. EXTREMITIES: Without clubbing, cyanosis, or edema. NEURO: Grossly nonfocal. LABORATORY DATA: White count 7.1, hemoglobin 11.2, platelets 137,000. Sodium 137, potassium 4.4, chloride 105, bicarb 23, BUN 32, creatinine 1.3. Her lab at 10 this morning, her potassium was 6.1, her creatinine was 3. She has since undergone 2 hours of dialysis. IMPRESSION: Acute renal failure of unclear etiology. She appears to be hemodynamically stable. We will follow while she is in the Critical Care Unit. TIME SPENT WITH PATIENT: A 70 minute consult, with greater than 50% of the time was spent on the unit coordinating care. Job ID: [id number] [facility]
[2019-04-04] MEDS: Famotidine 20 MG TAB PO SCH (20:44)
--- NOTE | 2019-04-05 02:12 | HP ---
PRIMARY CARE PROVIDER: Clau Thomas MD CHIEF COMPLAINT: Passing out. HISTORY OF PRESENT ILLNESS: This is a 68-year-old female who presents to [facility] Emergency Department after sustaining a fall after passing out. The patient states she was feeling dizzy after walking back from the restroom in her home when she tripped over a phone cord and fell on a carpet. The patient had a sensation of her arms jerking and twitching and felt dizzy. The patient states she felt generally weak in her legs, but denied any chest pain, nausea, vomiting, or incontinence of stool or urine. The patient denied any recent exposure history, travel, or family members with similar symptoms. The patient states she had some discomfort to the back of her head after falling and passing out, but denied any visual disturbance, unilateral weakness, or difficulty with speech. The patient denies any previous similar incidents and denies any new medication exposure. In the emergency room, the patient was noted with mild hypotension with metabolic screening showing evidence of acute kidney injury with dehydration and hyperkalemia with a potassium of 6.1. The patient received intravenous normal saline, meclizine, calcium chloride, vancomycin, Levaquin, and D50. The patient also underwent placement of a hemodialysis catheter in the emergency room with a stat consult to Nephrology Service for urgent hemodialysis. The patient denied any previous history of needing hemodialysis or renal failure. The patient underwent hemodialysis and transferred from the emergency department, tolerating without difficulty. PAST MEDICAL HISTORY: 1. Hypothyroidism. 2. Hypertension. 3. Diabetes mellitus type 2 insulin requiring. 4. Hyperlipidemia. 5. Coronary artery disease. 6. Morbid obesity. PAST SURGICAL HISTORY: 1. Status post coronary artery bypass grafting x3 vessels. 2. Status post bilateral tubal ligation. 3. Status post right oophorectomy. 4. Status post section x2. 5. Status post hysterectomy. 6. Status post salivary gland removal. 7. Status post carotid endarterectomy. CURRENT MEDICATIONS: Based on review of electronic medical record; 1. Enteric-coated aspirin 325 mg p.o. daily. 2. Coreg 6.25 mg p.o. b.i.d. 3. Lasix 40 mg p.o. at Friday, Friday, and Friday. 4. Gemfibrozil 600 mg p.o. daily. 5. Humulin N 70/30, 72 units subcutaneously b.i.d. 6. Isosorbide dinitrate mg p.o. daily. 7. Levothyroxine 150 mcg p.o. daily. 8. Lisinopril 10 mg p.o. daily. 9. Metformin 1000 mg p.o. b.i.d. 10. Multivitamin 1 tablet p.o. daily. 11. Vitamin B complex. 12. Pravachol 80 mg p.o. at bedtime. ALLERGIES: NO KNOWN DRUG ALLERGIES. FAMILY HISTORY: Positive for diabetes mellitus type 2 and hypertension. SOCIAL HISTORY: Resides in [place], [place]. No current alcohol, tobacco, or illicit drug use. Quit smoking in 2013. REVIEW OF SYSTEMS: CONSTITUTIONAL: Negative for weight loss or gain, ability to conduct usual activities. SKIN: Negative for rash, itching. EYES: Negative for double vision, pain. ENT/MOUTH: Negative for nose bleeding, neck stiffness, pain, tenderness. CARDIOVASCULAR: Negative for palpitations, dyspnea on exertion, orthopnea. RESPIRATORY: Negative for shortness of breath, wheezing, cough, hemoptysis, fever or night sweats. GASTROINTESTINAL: Negative for poor appetite, abdominal pain, heartburn, nausea, vomiting, constipation, or diarrhea. GENITOURINARY: Negative for urgency, frequency, dysuria, nocturia. MUSCULOSKELETAL: Negative for pain, swelling. NEUROLOGIC/PSYCHIATRIC: Negative for anxiety, depression. ALLERGY/IMMUNOLOGIC: Negative for skin rash, bleeding tendency. Otherwise, negative except as stated per HPI. PHYSICAL EXAMINATION: VITAL SIGNS: On admission; blood pressure 90/55, pulse 77, respiratory rate 20, temperature 99.4 degrees Fahrenheit, O2 saturation 100% on 2 L/min by nasal cannula. GENERAL APPEARANCE: This is a 68-year-old female, alert and oriented x3, pleasant, responsive, in no acute distress. HEENT: Pupils are equal, round, and reactive to light and accommodation. Extraocular muscles are intact. No scleral icterus. No conjunctival injection. Nares patent. OP is clear. Teeth in fair repair. NECK: Supple. No cervical adenopathy. No thyromegaly. No carotid bruits. No JVD appreciated. Cervical spine with full active and passive range of motion. No meningeal signs noted. CHEST: Lungs are clear to auscultation bilaterally. CARDIOVASCULAR: S1 and S2 without noted murmur, rub, or gallop. ABDOMEN: Rounded, soft, nontender, and nondistended. Bowel sounds are positive in all 4 quadrants. There is no hepatosplenomegaly. No abdominal bruits. No rebound or guarding appreciated. EXTREMITIES: Warm and dry with fair turgor. No clubbing, cyanosis, or asymmetric edema appreciated. Pulses are palpable distally at the dorsalis pedis, posterior tibial, and popliteal arteries bilaterally. Capillary refill less than 2 seconds. NEUROLOGIC: Cranial nerves II through XII are grossly intact. No focal or lateralizing signs appreciated. PERTINENT LAB AND X-RAY FINDINGS: Sodium 130, potassium 6.1, chloride 99, CO2 of 19, BUN 73, creatinine 3.01, previously noted 1.13 in November of 2018. Estimated GFR 15, glucose 69. Lactic acid level 1.2. LFTs within normal limits. Total CK 215. Ammonia level 24. BNP 579. TSH 0.88. Lipase 15. CBC showed a white blood cell count of 9.9, hemoglobin 12.6, hematocrit 37.4, platelet count 187 with normal differential. Urinalysis negative. Hepatitis B and C negative. Portable chest x-ray dated 04/04/2019, showed mild hypoinflation with pulmonary venous vascular prominence. CT of the brain without contrast dated 04/04/2019, showed no acute intracranial process. EKG dated 04/04/2019, by my interpretation shows sinus mechanism with heart rates in the 70s, attenuated R-waves noted in the precordial leads, normal axis, no acute ST-T wave changes appreciated. ASSESSMENT AND PLAN: 1. Acute kidney injury. The patient admitted to the Critical Care Unit. The patient underwent urgent hemodialysis x1 session. Suspect iatrogenic kidney injury due to history of exposure to lisinopril, Lasix, and metformin. Avoid nephrotoxic agents and limit contrast exposure. Serial creatinine monitoring. Appreciate Nephrology assistance. 2. Hyperkalemia, status post calcium chloride with D50 and water. Stabilizing currently after urgent hemodialysis. Continue serial potassium monitoring. 3. Hypotension, suspect due to hypovolemia in conjunction with acute kidney injury and volume depletion. We will continue intravenous normal saline at 75 mL/h. Hold all antihypertensive medications. Vasopressor support as clinically indicated. 4. Hyponatremia, suspect secondary to volume overload in conjunction with acute kidney injury, suspect hyponatremia will correct with volume replacement. 5. Syncope, suspect secondary to volume depletion as stated previously. Continue volume replacement and monitor clinical response. PT evaluation for functional assessment. Check 2D transthoracic echocardiogram. 6. Diabetes mellitus type 2. Serial Accu-Cheks before meals and at bedtime. Insulin sliding scale for reflexive coverage. ADA diet. 7. Prophylaxis. Sequential compression devices while in bed. Pepcid 20 mg p.o. b.i.d. PT evaluation in the a.m. 8. Code status is full. Surrogate medical decision maker is patient's daughter. Job ID: [id number]
[2019-04-05 05:20] VITALS: BMI 38.7
[2019-04-05 05:56] LABS: Anion Gap 12 mmol/L (10-20); BUN (Urea Nitrogen) 28 mg/dL (9.8-20.1); Calc. Creatinine Clearance 56 mL/min (70-130); Calcium 9.4 mg/dL (7.8-10.44); Carbon Dioxide 24 mmol/L (23-31); Chloride 107 mmol/L (98-107); Estimated GFR-MDRD 41; Glucose 250 mg/dL (80-115); Potassium 5.5 mmol/L (3.5-5.1); Sodium 137 mmol/L (136-145)
[2019-04-05 06:06] LABS: Band 4 % (5-11); Eosinophils 4 % (0-10); Hemoglobin 11.3 g/dL (12.0-16.0); Lymphocytes 22 % (21-51); MDiff Complete? YES; Mean Corpuscular HGB CONC 34.7 g/dL (32.0-36.0); Mean Corpuscular Hemoglobin 33.1 pg (27.0-31.0); Mean Corpuscular Volume 95.3 fL (78.0-98.0); Mean Platelet Volume 10.6 fL (7.4-10.4); Monocytes 10 % (0-10); Neutrophil 60 % (42-75); Platelet Count 130 thou/uL (130-400); RBC Distribution Width 11.9 % (11.5-14.5); White Blood Cell (WBC) Count 6.1 thou/uL (4.8-10.8)
[2019-04-05] MEDS: Levothyroxine 150 MCG TAB PO SCH (06:27)
--- NOTE | 2019-04-05 08:40 | PRG ---
DATE OF SERVICE: 04/05/2019 SUBJECTIVE: Remains in the ICU. She was dizzy and fell down. When she came to the hospital, was found to be in renal failure. This morning, she is doing better, still weak. Not nauseated. No pain. OBJECTIVE: VITAL SIGNS: Saturations are 96 on 2 L, blood pressure 137/50, respirations 18, pulse 80. CHEST: Decreased breath sounds. No wheezing. CARDIAC: Normal S1 and S2. No gallop. ABDOMEN: No mass. LABORATORY DATA: Lytes are normal. Creatinine is 1.28, BUN is 28. ASSESSMENT: Morbid obesity, status post renal failure, encephalopathy. PLAN: 1. Continue PT. Continue supportive care. 2. Disposition as per primary care physician. We will follow while in the ICU. Job ID: [id number]
[2019-04-05] MEDS: Famotidine 20 MG TAB PO SCH (09:57)
[2019-04-05] MEDS: Stress 600 With Zinc 1 TAB PO SCH (09:57)
[2019-04-05] MEDS: Aspirin 325 MG TAB PO SCH (09:57)
[2019-04-05] MEDS: Sodium Chloride 0.9% 1,000 ML IV SCH (09:59)
[2019-04-05] MEDS: HumaLOG 300 UNITS/3 ML VIAL SC PRN ×2 (11:57→16:54)
--- NOTE | 2019-04-05 14:48 | PDOC.PN ---
- Subjective Encounter Start Date: 04/05/19 Encounter Start Time: 14:47 Mr. Garner was seen today in follow-up of Gatric ulcers and GI bleed. She is sitting up in a chair, and says she feels much better today. The abdominal pain and chest pain has resolved. - Objective Resuscitation Status - Order Detail: 04/04/19 19:44 Resuscitation Status Routine Resuscitation Status: FULL: Full Resuscitation MAR Reviewed: Yes Vital Signs & Weight: Vital Signs (12 hours) Temp Pulse Pulse Pulse Resp BP BP 04/05/19 13:05 99 F 79 18 04/05/19 12:00 99.4 F 04/05/19 10:40 81 85 104/70 143/56 H 04/05/19 08:00 99.9 F H 04/05/19 04:00 99.1 F BP Pulse Ox Pulse Ox Pulse Ox 04/05/19 13:05 144/64 H 94 L 04/05/19 12:00 04/05/19 10:40 96 96 04/05/19 08:00 99 04/05/19 04:00 Weight Weight 191 lb 12.8 oz Most Recent Monitor Data Heart Rate from ECG 84 NIBP 155/92 NIBP BP-Mean 113 Respiration from ECG 27 SpO2 89 I&O: 04/04/19 04/05/19 04/06/19 06:59 06:59 06:59 Intake Total 1737 960 Output Total 3360 930 Balance -1623 30 Result Diagrams: 04/05/19 04:55 04/05/19 04:55 Additional Labs: Accuchecks 04/05/19 04/04/19 04/04/19 11:43 21:18 16:18 POC Glucose 246 H 166 H 150 H Phys Exam - Physical Examination HEENT: PERRLA Respiratory: no wheezing, no rales, no rhonchi, clear to auscultation bilateral Cardiovascular: RRR, no significant murmur, no rub Gastrointestinal: soft, non-tender, no distention, positive bowel sounds Musculoskeletal: pulses present, edema present 2+ pitting edema bilaterally Deviation from normal: + bruising in the upper exrtemities Dx/Plan - Plan * .
--- NOTE | 2019-04-05 15:30 | PQF ---
CLINICAL DOCUMENTATION IMPROVEMENT CLARIFICATION FORM: ICD-10 Updated PLEASE DO AN ADDENDUM TO THE PROGRESS NOTE WITH ANY DOCUMENTATION UPDATES OR ADDITIONS AND CARRY THROUGH TO DC SUMMARY. THANK YOU. DATE: 04/05/19 ATTN: DR. BILLINGSLEY Please exercise your independent, professional judgment in responding to the clarification form. Clinical indicators are provided on the bottom of this form for your review Please check appropriate box(s): [ x] Encephalopathy: Type: [ x] Acute [ ] Subacute [ ] Chronic Etiology: [ ] Hypertensive [ x] Metabolic [ ] Toxic [ ] Hepatic with Coma [ ] Hepatic w/o Coma [ ] Hypoxic [ ] Septic [ ] Drug induced: [ ] Unspecified [ ] in the setting of underlying dementia [ ] Other (please specify) [ ] Transient Alteration of Awareness [ ] Other diagnosis [ ] Unable to determine In addition, please specify: Present on Admission (POA): [x ] Yes [ ] No [ ] Unable to determine For continuity of documentation, please document condition throughout progress notes and discharge summary. Thank You. CLINICAL INDICATORS - SIGNS / SYMPTOMS / LABS PROGRESS NOTE 04/05: "ENCEPHALOPATHY" RISKS: YOU HYPONATREMIA TREATMENT: IV LEVAQUIN (ER) IV VANCOMYCIN (ER) IV FLUIDS (ER-PRESENT) SODIUM BICARB( (ER) SERIAL LABS BRAIN CT SAP Manual Tester [employer] Winform Viewer(This form is maintained as a part of the permanent medical record) 2014 [employer]. All Rights Reserved CANDIDO [email or web address] Office: [phone] [facility] HOSPITALJoelle
--- NOTE | 2019-04-05 16:35 | PDOC.PN ---
- Subjective Encounter Start Date: 04/05/19 Encounter Start Time: 09:40 Feeling some better. No specific complaints. - Objective Resuscitation Status - Order Detail: 04/04/19 19:44 Resuscitation Status Routine Resuscitation Status: FULL: Full Resuscitation Vital Signs & Weight: Vital Signs (12 hours) Temp Pulse Pulse Pulse Resp BP BP 04/05/19 15:29 98.8 F 75 18 04/05/19 13:05 99 F 79 18 04/05/19 12:00 99.4 F 04/05/19 10:40 81 85 104/70 143/56 H 04/05/19 08:00 99.9 F H BP Pulse Ox Pulse Ox Pulse Ox 04/05/19 15:29 140/61 93 L 04/05/19 13:05 144/64 H 94 L 04/05/19 12:00 04/05/19 10:40 96 96 04/05/19 08:00 99 Weight Weight 191 lb 12.8 oz Most Recent Monitor Data Heart Rate from ECG 84 NIBP 155/92 NIBP BP-Mean 113 Respiration from ECG 27 SpO2 89 I&O: 04/04/19 04/05/19 04/06/19 06:59 06:59 06:59 Intake Total 1737 960 Output Total 3360 930 Balance -1623 30 Result Diagrams: 04/05/19 04:55 04/05/19 04:55 Additional Labs: Accuchecks 04/05/19 04/04/19 04/04/19 11:43 21:18 16:18 POC Glucose 246 H 166 H 150 H Phys Exam - Physical Examination Constitutional: NAD Respiratory: no wheezing, no rales, no rhonchi, clear to auscultation bilateral Cardiovascular: RRR, no significant murmur II/ M Gastrointestinal: soft, non-tender, no distention, positive bowel sounds Musculoskeletal: no edema Neurological: non-focal Psychiatric: normal affect, A&O x 3 Skin: normal turgor Dx/Plan (1) Acute kidney injury Code(s): N17.9 - ACUTE KIDNEY FAILURE, UNSPECIFIED Status: Acute (2) Hyperkalemia Code(s): E87.5 - HYPERKALEMIA Status: Acute (3) Syncope Code(s): R55 - SYNCOPE AND COLLAPSE Status: Acute (4) Diabetes Code(s): E11.9 - TYPE 2 DIABETES MELLITUS WITHOUT COMPLICATIONS Status: Acute (5) Hypotension Status: Acute (6) Hyponatremia Code(s): E87.1 - HYPO-OSMOLALITY AND HYPONATREMIA Status: Acute - Plan * Transfer out of CCU to telemetry. * Nephrology consulting. * Had HD last night. Will defer to Neph as whether she needs more. * EKG was normal. * Etiology of renal failure is unclear. * Avoiding nephrotoxins. * Manage blood sugars.
[2019-04-05 16:47] LABS: Anion Gap 12 mmol/L (10-20); BUN (Urea Nitrogen) 19 mg/dL (9.8-20.1); Calc. Creatinine Clearance 70 mL/min (70-130); Calcium 9.7 mg/dL (7.8-10.44); Carbon Dioxide 22 mmol/L (23-31); Chloride 107 mmol/L (98-107); Estimated GFR-MDRD 53; Glucose 278 mg/dL (80-115); Potassium 4.8 mmol/L (3.5-5.1); Sodium 136 mmol/L (136-145)
[2019-04-05] MEDS: Acetaminophen 500 MG TAB PO PRN ×2 (16:54→20:27)
--- NOTE | 2019-04-05 21:00 | PRG ---
DATE OF SERVICE: 04/05/2019 OBJECTIVE: GENERAL: This is a well-built female, in no apparent distress. VITAL SIGNS: Temperature 98, pulse blood pressure 140/61. LABORATORY DATA: Potassium 4.8, BUN is 19, creatinine is 1.03. ASSESSMENT AND PLAN: 1. Acute kidney injury, much better. 2. Hyperkalemia better. No acute indication for dialysis. 3. Edema, controlled. 4. Hypertension, stable. 5. Metabolic acidosis, stable. Overall labs seems to be stable. No indication for dialysis. We will monitor. Job ID: [id number]
[2019-04-06] MEDS: Lidocaine 5% Patch TD SCH (00:41)
[2019-04-06] MEDS: Sodium Chloride 0.9% 1,000 ML IV SCH (00:43)
[2019-04-06] MEDS: Ondansetron PF 4 MG/2 ML Vial IVP PRN ×2 (00:43→19:56)
[2019-04-06 05:47] LABS: Band 11 % (5-11); Hemoglobin 11.7 g/dL (12.0-16.0); Lymphocytes 10 % (21-51); MDiff Complete? YES; Mean Corpuscular HGB CONC 33.5 g/dL (32.0-36.0); Mean Corpuscular Hemoglobin 32.3 pg (27.0-31.0); Mean Corpuscular Volume 96.4 fL (78.0-98.0); Mean Platelet Volume 10.3 fL (7.4-10.4); Monocytes 11 % (0-10); Neutrophil 68 % (42-75); Platelet Count 120 thou/uL (130-400); Red Blood Cell (RBC) Count 3.62 mill/uL (4.20-5.40); White Blood Cell (WBC) Count 8.3 thou/uL (4.8-10.8)
[2019-04-06 05:52] LABS: Anion Gap 11 mmol/L (10-20); BUN (Urea Nitrogen) 13 mg/dL (9.8-20.1); Calc. Creatinine Clearance 83 mL/min (70-130); Calcium 9.4 mg/dL (7.8-10.44); Carbon Dioxide 24 mmol/L (23-31); Chloride 104 mmol/L (98-107); Estimated GFR-MDRD 64; Glucose 256 mg/dL (80-115); Potassium 4.4 mmol/L (3.5-5.1); Sodium 135 mmol/L (136-145)
[2019-04-06] MEDS: Levothyroxine 150 MCG TAB PO SCH (06:02)
[2019-04-06] MEDS: Aspirin 325 MG TAB PO SCH (08:44)
[2019-04-06] MEDS: HumaLOG 300 UNITS/3 ML VIAL SC PRN ×2 (08:44→11:03)
[2019-04-06] MEDS: Stress 600 With Zinc 1 TAB PO SCH (08:44)
[2019-04-06] MEDS: Gemfibrozil 600 MG TAB PO SCH ×2 (09:47→19:56)
[2019-04-06] MEDS: Carvedilol 6.25 MG TAB PO SCH ×2 (09:48→19:56)
[2019-04-06] MEDS: Rosuvastatin 20 MG TAB PO SCH (09:48)
--- NOTE | 2019-04-06 09:52 | PRG ---
DATE OF SERVICE: 04/06/2019 SUBJECTIVE: Lamin Garner is a 68-year-old female, this morning, she is still short of breath. OBJECTIVE: VITAL SIGNS: Saturations are 95% on 2 L, respiratory rate 22, temperature 98, pulse 74, and blood pressure is elevated at 189/81. CHEST: Decreased breath sounds. No wheezing. CARDIAC: Normal S1 and S2. No gallops. ABDOMEN: No masses. LABORATORY DATA: Renal function is resolved. Glucose is 229. White count is unremarkable. IMPRESSION: Morbid obesity, normal ejection fraction, hypertension, still cardiac concern that she is short of breath and hypoxic. I did not see much of a chest x-ray to suggest any acute infection. Start neb treatments, supportive care, PT. Job ID: [id number]
[2019-04-06] MEDS ORDERED: Insulin Glargine 15 UNITS in Pre-Filled Syringe 1 EACH SC SCH (11:15)
[2019-04-06] MEDS: Lidocaine Patch Removal 1 EACH TOP SCH (13:12)
--- NOTE | 2019-04-06 15:38 | PRG ---
DATE OF SERVICE: 04/06/2019 SUBJECTIVE: Patient was seen and examined at bedside and overnight events noted. Patient denies any shortness of breath or chest pain or palpitation. No history of nausea or vomiting or diarrhea or fever or chills or cramps. OBJECTIVE: GENERAL: This is a well-built female, in no apparent distress. VITAL SIGNS: Temperature 98.7. Heart rate 72. Respiratory rate 18. Blood pressure 138/65. HEENT: Atraumatic, normocephalic. Oral mucosa is moist NECK: Supple. CARDIOVASCULAR: S1, S2 heard. Rate and rhythm regular. RESPIRATORY: Clear to auscultation. GASTROINTESTINAL: Abdomen is soft. MUSCULOSKELETAL: No tenderness. No edema. DERMATOLOGIC: No skin rash. NEUROLOGIC: Alert and awake and oriented X3. No focal neurologic deficits. Moving all the extremities. PSYCHIATRIC: Mood and affect normal. LABORATORY DATA: Potassium 4.4, BUN is 13, and creatinine is 0.8. ASSESSMENT AND PLAN: 1. Acute kidney injury, much better. Creatinine back to normal. 2. Hyperkalemia, better. Limit potassium intake. 3. Edema, controlled. 4. Hypertension. 5. Metabolic acidosis, stable. 6. No acute indication for dialysis. Okay to remove dialysis catheter. Control blood sugar. Avoid nephrotoxins and monitor renal function. I will sign off. Please call back with any questions. Job ID: [id number]
[2019-04-06] MEDS: Isosorbide Dinitrate 20 MG TAB PO SCH (19:56)
--- NOTE | 2019-04-06 22:02 | PDOC.PN ---
- Subjective Encounter Start Date: 04/06/19 Encounter Start Time: 08:40 Feeling better. - Objective Resuscitation Status - Order Detail: 04/04/19 19:44 Resuscitation Status Routine Resuscitation Status: FULL: Full Resuscitation Vital Signs & Weight: Vital Signs (12 hours) Temp Pulse Pulse Pulse Resp BP BP 04/06/19 19:56 125/60 04/06/19 15:20 98.3 F 65 20 04/06/19 15:19 98.3 F 65 20 04/06/19 14:36 92 70 119/59 L 04/06/19 13:29 70 18 04/06/19 11:05 99 F 72 18 BP BP Pulse Ox Pulse Ox Pulse Ox 04/06/19 19:56 04/06/19 15:20 121/58 L 96 04/06/19 15:19 121/58 L 96 04/06/19 14:36 129/61 96 97 04/06/19 13:29 100 04/06/19 11:05 138/65 95 Weight Weight 190 lb 11.2 oz Most Recent Monitor Data Heart Rate from ECG 84 NIBP 155/92 NIBP BP-Mean 113 Respiration from ECG 27 SpO2 89 I&O: 04/05/19 04/06/19 04/07/19 06:59 06:59 06:59 Intake Total 1737 2380 1200 Output Total 3360 4080 1225 Balance -1623 -1700 -25 Result Diagrams: 04/06/19 04:36 04/06/19 04:36 Additional Labs: Accuchecks 04/06/19 04/06/19 04/06/19 20:36 16:58 10:25 POC Glucose 281 H 242 H 262 H 04/06/19 05:36 POC Glucose 229 H Phys Exam - Physical Examination Constitutional: NAD Respiratory: no wheezing, no rales, no rhonchi, clear to auscultation bilateral Cardiovascular: RRR, no significant murmur Gastrointestinal: soft, non-tender, no distention, positive bowel sounds Musculoskeletal: no edema Neurological: non-focal Psychiatric: normal affect, A&O x 3 Skin: normal turgor Dx/Plan (1) Acute kidney injury Code(s): N17.9 - ACUTE KIDNEY FAILURE, UNSPECIFIED Status: Acute (2) Hyperkalemia Code(s): E87.5 - HYPERKALEMIA Status: Acute (3) Syncope Code(s): R55 - SYNCOPE AND COLLAPSE Status: Acute (4) Diabetes Code(s): E11.9 - TYPE 2 DIABETES MELLITUS WITHOUT COMPLICATIONS Status: Acute (5) Hypotension Status: Acute (6) Hyponatremia Code(s): E87.1 - HYPO-OSMOLALITY AND HYPONATREMIA Status: Acute - Plan * Renal function back to baseline. Nephrology signed off. * Had some mild hypoxia with nasal cannula oxygen applied over night. * IV fluids have been discontinued. * Will get the Theodore out and her up and moving. * If the oxygen improves as expected with activity, hope to discharge in am.
[2019-04-07] MEDS: Lidocaine 5% Patch TD SCH (02:36)
[2019-04-07] MEDS: Ondansetron PF 4 MG/2 ML Vial IVP PRN (02:40)
[2019-04-07 05:43] LABS: Anion Gap 14 mmol/L (10-20); BUN (Urea Nitrogen) 17 mg/dL (9.8-20.1); Calc. Creatinine Clearance 81 mL/min (70-130); Calcium 9.2 mg/dL (7.8-10.44); Carbon Dioxide 23 mmol/L (23-31); Chloride 103 mmol/L (98-107); Estimated GFR-MDRD 64; Glucose 271 mg/dL (80-115); Potassium 4.5 mmol/L (3.5-5.1); Sodium 135 mmol/L (136-145)
[2019-04-07] MEDS: Levothyroxine 150 MCG TAB PO SCH (05:51)
[2019-04-07 06:13] LABS: Band 5 % (5-11); Hemoglobin 10.7 g/dL (12.0-16.0); Lymphocytes 21 % (21-51); MDiff Complete? YES; Mean Corpuscular HGB CONC 33.5 g/dL (32.0-36.0); Mean Corpuscular Volume 95.5 fL (78.0-98.0); Mean Platelet Volume 9.8 fL (7.4-10.4); Monocytes 5 % (0-10); Neutrophil 68 % (42-75); Platelet Count 130 thou/uL (130-400); RBC Distribution Width 11.9 % (11.5-14.5); Reactive Lymphocytes 1 % (0-10); Red Blood Cell (RBC) Count 3.33 mill/uL (4.20-5.40); White Blood Cell (WBC) Count 8.1 thou/uL (4.8-10.8)
[2019-04-07] MEDS: glipiZIDE 5 MG TAB PO SCH (08:56)
[2019-04-07] MEDS: Carvedilol 6.25 MG TAB PO SCH ×2 (08:57→19:46)
[2019-04-07] MEDS: Aspirin 325 MG TAB PO SCH (08:57)
[2019-04-07] MEDS: metFORMIN 500 MG TAB PO SCH ×2 (08:57→17:04)
[2019-04-07] MEDS: Gemfibrozil 600 MG TAB PO SCH ×2 (08:58→19:46)
[2019-04-07] MEDS: Isosorbide Dinitrate 20 MG TAB PO SCH ×2 (08:58→21:06)
[2019-04-07] MEDS: Rosuvastatin 20 MG TAB PO SCH (08:59)
[2019-04-07] MEDS: Stress 600 With Zinc 1 TAB PO SCH (08:59)
[2019-04-07] MEDS: HumaLOG 300 UNITS/3 ML VIAL SC PRN ×2 (09:00→11:35)
--- NOTE | 2019-04-07 09:57 | PRG ---
DATE OF SERVICE: 04/07/2019 SUBJECTIVE: She denies any pain or discomfort. OBJECTIVE: VITAL SIGNS: Saturations are 97% on room air, respiratory rate 18, temperature 99.4, blood pressure 125/60. CHEST: No wheezing or crackles. CARDIAC: Normal S1 and S2. No gallops. ABDOMEN: Unremarkable. LABORATORY DATA: Lytes are normal. IMPRESSION: 1. Renal function, resolved. 2. Blood sugar is elevated. 3. Acute renal failure, resolved. 4. Respiratory failure. 5. Hypertension, improved. Pulmonary yeung, nothing additional to offer at this time. Pulmonary/Critical Care will sign off. Please call if needed. Job ID: [id number]
[2019-04-07] MEDS: Ondansetron ODT 4 MG TAB SL PRN (10:35)
[2019-04-07] MEDS: Lidocaine Patch Removal 1 EACH TOP SCH (11:32)
--- NOTE | 2019-04-07 17:10 | PDOC.PN ---
- Subjective Encounter Start Date: 04/07/19 Encounter Start Time: 09:50 Feeling ok. Has had some nausea. - Objective Resuscitation Status - Order Detail: 04/04/19 19:44 Resuscitation Status Routine Resuscitation Status: FULL: Full Resuscitation Vital Signs & Weight: Vital Signs (12 hours) Temp Pulse Resp BP BP Pulse Ox 04/07/19 15:37 99.1 F 66 20 114/55 L 100 04/07/19 11:29 99.1 F 69 20 99/54 L 97 04/07/19 08:57 125/60 04/07/19 07:25 99.5 F 62 18 130/58 L 99 04/07/19 07:04 71 14 97 Weight Weight 178 lb 14.4 oz Most Recent Monitor Data Heart Rate from ECG 84 NIBP 155/92 NIBP BP-Mean 113 Respiration from ECG 27 SpO2 89 I&O: 04/06/19 04/07/19 04/08/19 06:59 06:59 06:59 Intake Total 2380 1600 Output Total 4080 2024 Balance -1700 -425 Result Diagrams: 04/07/19 05:08 04/07/19 05:08 Additional Labs: Accuchecks 04/07/19 04/07/19 04/06/19 11:25 05:17 20:36 POC Glucose 223 H 258 H 281 H 04/06/19 16:58 POC Glucose 242 H Phys Exam - Physical Examination Constitutional: NAD Respiratory: no wheezing, no rales, no rhonchi, clear to auscultation bilateral Cardiovascular: RRR, no significant murmur Gastrointestinal: soft, non-tender, no distention Musculoskeletal: no edema Psychiatric: normal affect, A&O x 3 Skin: normal turgor Dx/Plan (1) Acute kidney injury Code(s): N17.9 - ACUTE KIDNEY FAILURE, UNSPECIFIED Status: Acute (2) Hyperkalemia Code(s): E87.5 - HYPERKALEMIA Status: Acute (3) Syncope Code(s): R55 - SYNCOPE AND COLLAPSE Status: Acute (4) Diabetes Code(s): E11.9 - TYPE 2 DIABETES MELLITUS WITHOUT COMPLICATIONS Status: Acute (5) Hypotension Status: Acute (6) Hyponatremia Code(s): E87.1 - HYPO-OSMOLALITY AND HYPONATREMIA Status: Acute - Plan * Renal function has normalized. * Will wean oxygen. * DC dialysis catheter. * Ambulate. * DC when she is off oxygen, ambulating and eating (nausea resolved).
[2019-04-08] MEDS: Lidocaine 5% Patch TD SCH (02:34)
[2019-04-08] MEDS: Levothyroxine 150 MCG TAB PO SCH (05:25)
[2019-04-08] MEDS: metFORMIN 500 MG TAB PO SCH ×2 (08:15→17:14)
[2019-04-08] MEDS: Gemfibrozil 600 MG TAB PO SCH ×2 (08:15→20:51)
[2019-04-08] MEDS: glipiZIDE 5 MG TAB PO SCH (08:15)
[2019-04-08] MEDS: Stress 600 With Zinc 1 TAB PO SCH (08:15)
[2019-04-08] MEDS: Rosuvastatin 20 MG TAB PO SCH (08:16)
[2019-04-08] MEDS: Aspirin 325 MG TAB PO SCH (08:16)
[2019-04-08] MEDS: Carvedilol 6.25 MG TAB PO SCH ×2 (08:16→20:51)
[2019-04-08] MEDS: Isosorbide Dinitrate 20 MG TAB PO SCH ×2 (08:16→20:52)
[2019-04-08] MEDS: HumaLOG 300 UNITS/3 ML VIAL SC PRN (11:33)
[2019-04-08] MEDS: Ondansetron ODT 4 MG TAB SL PRN (11:44)
[2019-04-08] MEDS: Lidocaine Patch Removal 1 EACH TOP SCH (12:20)
--- NOTE | 2019-04-08 15:00 | PDOC.PN ---
- Subjective Encounter Start Date: 04/08/19 Encounter Start Time: 12:30 Subjective: pt up in bed feels nauseated - Objective Resuscitation Status - Order Detail: 04/04/19 19:44 Resuscitation Status Routine Resuscitation Status: FULL: Full Resuscitation MAR Reviewed: Yes Vital Signs & Weight: Vital Signs (12 hours) Temp Pulse Resp BP BP Pulse Ox 04/08/19 11:55 98.2 F 62 18 109/54 L 96 04/08/19 08:10 97.7 F 62 20 133/65 95 04/08/19 03:50 98.5 F 65 20 129/59 L 95 Weight Weight 180 lb 11.2 oz Most Recent Monitor Data Heart Rate from ECG 84 NIBP 155/92 NIBP BP-Mean 113 Respiration from ECG 27 SpO2 89 I&O: 04/07/19 04/08/19 04/09/19 06:59 06:59 06:59 Intake Total 1600 1260 Output Total 2025 600 Balance -425 660 Result Diagrams: 04/07/19 05:08 04/07/19 05:08 Additional Labs: Accuchecks 04/08/19 04/08/19 04/07/19 11:06 05:23 20:22 POC Glucose 195 H 169 H 211 H 04/07/19 16:59 POC Glucose 150 H Phys Exam - Physical Examination Respiratory: no wheezing, no rales, no rhonchi, wheezing present, clear to auscultation bilateral Cardiovascular: RRR, no significant murmur, no rub, gallop, irregular Gastrointestinal: soft, non-tender, no distention, positive bowel sounds Dx/Plan (1) Acute kidney injury Code(s): N17.9 - ACUTE KIDNEY FAILURE, UNSPECIFIED Status: Acute (2) Hyperkalemia Code(s): E87.5 - HYPERKALEMIA Status: Acute (3) Hyponatremia Code(s): E87.1 - HYPO-OSMOLALITY AND HYPONATREMIA Status: Acute (4) Hypotension Status: Acute (5) Diabetes Code(s): E11.9 - TYPE 2 DIABETES MELLITUS WITHOUT COMPLICATIONS Status: Acute - Plan -: pt still nauseated, her labs are stable. Her lisinopril/lasix and metformin -: have been discontinued. -: if pt feels well may discharge in am * . Review of Systems - Review of Systems Respiratory: negative: Cough, Dry, Shortness of Breath, Hemoptysis, SOB with Excertion, Pleuritic Pain, Sputum, Wheezing Gastrointestinal: Nausea Genitourinary: negative: Dysuria, Frequency, Incontinence, Hematuria, Retention , Other Musculoskeletal: negative: Neck Pain, Shoulder Pain, Arm Pain, Back Pain, Hand Pain, Leg Pain, Foot Pain, Other - Medications/Allergies Allergies/Adverse Reactions: Allergies Allergy/AdvReac Type Severity Reaction Status Date / Time No Known Allergies Allergy Verified 03/16/18 01:11 Medications: Current Medications Acetaminophen (Tylenol) 1,000 mg PO Q6H PRN PRN Reason: Mild Pain (1-3) Last Admin: 04/05/19 20:27 Dose: 1,000 mg Albuterol/Ipratropium (Duoneb) 3 ml NEB [id number] [facility] Last Admin: 04/08/19 13:32 Dose: Not Given Aspirin (Aspirin) 325 mg PO DAILY [facility] Last Admin: 04/08/19 08:16 Dose: 325 mg Carvedilol (Coreg) 10 mg PO BID [facility] Last Admin: 04/08/19 08:16 Dose: 10 mg Dextrose/Water (Dextrose 50%) 25 gm SLOW IVP PRN PRN PRN Reason: Hypoglycemia Gemfibrozil (Lopid) 600 mg PO BID [facility] Last Admin: 04/08/19 08:15 Dose: 600 mg Glipizide (Glucotrol) 5 mg PO DAILY-AC [facility] Last Admin: 04/08/19 08:15 Dose: 5 mg Glucagon (Glucagon) 1 mg IM PRN PRN PRN Reason: Hypoglycemia Dextrose/Water (D5w) 1,000 mls @ 0 mls/hr IV .Q0M PRN PRN Reason: Hypoglycemia Insulin Human Lispro (Humalog) 0 units SC .MILD SLIDING SCALE PRN PRN Reason: Mild Correctional Scale Last Admin: 04/08/19 11:33 Dose: 2 unit Insulin Human Lispro (Humalog) 0 units SC .BEDTIME SLIDING SC PRN PRN Reason: Bedtime Correctional Scale Last Admin: 04/05/19 20:29 Dose: 3 unit Isosorbide Dinitrate (Isordil) 120 mg PO BID [facility] Last Admin: 04/08/19 08:16 Dose: 120 mg Levothyroxine Sodium (Synthroid) 150 mcg PO 0600 [facility] Last Admin: 04/08/19 05:25 Dose: 150 mcg Lidocaine (Lidoderm 5% Patch) 1 patch TD 0100 [facility] Last Admin: 04/08/19 02:34 Dose: Not Given Metformin HCl (Glucophage) 1,000 mg PO BID-WM [facility] Last Admin: 04/08/19 08:15 Dose: 1,000 mg Miscellaneous Medication (Lidocaine Patch Removal) 1 each TOP 1300 [facility] Last Admin: 04/08/19 12:20 Dose: Not Given Multivitamins/Zinc (Stress 600 With Zinc) 1 tab PO DAILY [facility] Last Admin: 04/08/19 08:15 Dose: 1 tab Ondansetron HCl (Zofran Odt) 4 mg SL Q6H PRN PRN Reason: Nausea/Vomiting Last Admin: 04/08/19 11:44 Dose: 4 mg Ondansetron HCl (Zofran) 4 mg IVP Q6H PRN PRN Reason: Nausea/Vomiting Last Admin: 04/07/19 02:40 Dose: 4 mg Rosuvastatin Calcium (Crestor) 20 mg PO DAILY [facility] Last Admin: 04/08/19 08:16 Dose: 20 mg Sodium Chloride (Flush - Normal Saline) 10 ml IVF Q12HR [facility] Last Admin: 04/08/19 08:18 Dose: 10 ml Sodium Chloride (Flush - Normal Saline) 10 ml IVF PRN PRN PRN Reason: Saline Flush Last Admin: 04/07/19 08:59 Dose: 10 ml
[2019-04-08] MEDS: Ondansetron PF 4 MG/2 ML Vial IVP PRN (17:13)
[2019-04-08] MEDS: Acetaminophen 500 MG TAB PO PRN (20:52)
[2019-04-09] MEDS: Lidocaine 5% Patch TD SCH (00:57)
[2019-04-09] MEDS: Ondansetron ODT 4 MG TAB SL PRN (00:57)
[2019-04-09] MEDS: Ondansetron PF 4 MG/2 ML Vial IVP PRN (00:59)
[2019-04-09] MEDS ORDERED: CODEINE PO PRN (01:48)
[2019-04-09] MEDS ORDERED: ACETAMINOPHEN PO PRN (01:48)
[2019-04-09] MEDS: Acetaminophen/Codeine 30-300mg Tablet PO PRN ×2 (03:00→09:38)
[2019-04-09] MEDS: Levothyroxine 150 MCG TAB PO SCH (06:01)
[2019-04-09 06:10] LABS: Anion Gap 13 mmol/L (10-20); BUN (Urea Nitrogen) 27 mg/dL (9.8-20.1); Calc. Creatinine Clearance 70 mL/min (70-130); Calcium 9.4 mg/dL (7.8-10.44); Carbon Dioxide 23 mmol/L (23-31); Chloride 103 mmol/L (98-107); Estimated GFR-MDRD 57; Glucose 176 mg/dL (80-115); Potassium 4.3 mmol/L (3.5-5.1); Sodium 135 mmol/L (136-145)
[2019-04-09] MEDS: glipiZIDE 5 MG TAB PO SCH (08:27)
[2019-04-09] MEDS: Rosuvastatin 20 MG TAB PO SCH (08:28)
[2019-04-09] MEDS: Aspirin 325 MG TAB PO SCH (08:28)
[2019-04-09] MEDS: Gemfibrozil 600 MG TAB PO SCH (08:28)
[2019-04-09] MEDS: metFORMIN 500 MG TAB PO SCH (08:28)
[2019-04-09] MEDS ORDERED: Carvedilol 6.25 MG TAB PO SCH (09:00)
[2019-04-09] MEDS: Isosorbide Dinitrate 20 MG TAB PO SCH (09:35)
[2019-04-09] MEDS: Stress 600 With Zinc 1 TAB PO SCH (09:35)
[2019-04-09] MEDS: Carvedilol 6.25 MG TAB PO SCH (09:39)
[2019-04-09 12:50] VITALS: BP 126/71; TEMP 97.9
--- NOTE | 2019-04-09 21:36 | EKG ---
Test Reason : FALL Blood Pressure : / mmHG Vent. Rate : 070 BPM Atrial Rate : 070 BPM P-R Int : 176 ms QRS Dur : 102 ms QT Int : 376 ms P-R-T Axes : 028 047 060 degrees QTc Int : 406 ms Normal sinus rhythm Normal ECG Confirmed by Cristofer PATEL ([id number]) on 04/09/2019 9:35:46 PM Referred By: MD LIMA Confirmed By:Cristofer PATEL
--- NOTE | 2019-04-10 05:00 | DIS ---
DATE OF ADMISSION: 04/04/2019 DATE OF DISCHARGE: 04/09/2019 DISCHARGE DIAGNOSES: As of the followin. Acute kidney injury. 2. Hyperkalemia. 3. Hyponatremia. 4. Hypertension. 5. Diabetes. HOSPITAL COURSE: The patient is a very pleasant 68-year-old female, who initially presented to the hospital on 04/04 with complaints of possible syncope. Upon further questioning the patient, she stated that she tripped over and fell on the carpet and had her arms with twitching and jerking sensation. The patient at that time was brought into the hospital, was found to have a potassium of 6.1, and significant elevated kidney injury. She was initially started on broad-spectrum antibiotics and she was also seen by [facility] to start her on hemodialysis. The patient recently was on lisinopril, Lasix, and metformin. The patient continued to improve. Her dialysis catheter was discontinued. Her discharge creatinine was 0.97. Her admission creatinine was 3.01. Her potassium was 4.3 on discharge. Her sugars continued to remain mildly elevated. I discontinued the metformin. The patient also had an echocardiogram, which indicated EF of 55% to 60% with left atrium moderately to severely dilated. The patient's consultants were Nephrology and also was Pulmonology. The patient continued to improve. She was a little nauseated on discharge, however, she was able to tolerate oral meals without any issues. CT brain indicated no acute intracranial abnormalities. MEDICATIONS: As of the followin. Glipizide 5 mg daily. 2. Crestor 20 mg daily. 3. Aspirin 325 daily. 4. Isosorbide 120 b.i.d. 5. Humalog 70/30, I decreased it to 25 units b.i.d. 6. Gemfibrozil 1 p.o. b.i.d. 7. Levothyroxine 125 mcg p.o. daily. 8. Coreg 6.25 mg p.o. daily. 9. Tylenol with codeine. I gave her old 12, since she was having back pain, and I told her to follow up with her pain doctor on Friday. The patient also was asked to follow up with her PCP and also was made aware that her insulin dose was decreased and also to check her insulin levels much more frequently. PHYSICAL EXAMINATION: VITAL SIGNS: 97.9, 70, 18, 92% on room air, 126/71. GENERAL: She is awake, alert, and oriented x3. Does not appear in distress. CV: S1, S2 present. No murmurs, rubs, or gallops. ABDOMEN: Soft and nontender. Bowel sounds are present x2. EXTREMITIES: No edema. Again, I have also given her a lab slip to follow up for her blood work. Job ID: [id number]
== END 2019-04-09 12:47 | disposition home or self-care (01) | DRG 682 ==
LOC: ERS 09:32 → CCU 13:30 → 2NO 04-05 13:10
PROVIDERS: ADMIT Internal Medicine; ATTEND Internal Medicine
PROC: 5A1D70Z Performance of Urinary Filtration, Intermittent, Less than 6 Hours Per Day (ICD-10-PCS; principal; 2019-04-04)
PROC: 0T9B70Z Drainage of Bladder with Drainage Device, Via Natural or Artificial Opening (ICD-10-PCS; 2019-04-04)
DX: N17.9 Acute kidney failure, unspecified (principal); G93.41 Metabolic encephalopathy; E87.1 Hypo-osmolality and hyponatremia; E87.2 Acidosis; E03.9 Hypothyroidism, unspecified; I10 Essential (primary) hypertension; E11.9 Type 2 diabetes mellitus without complications; E78.5 Hyperlipidemia, unspecified; I25.10 Atherosclerotic heart disease of native coronary artery without angina pectoris; E66.01 Morbid (severe) obesity due to excess calories; E87.5 Hyperkalemia; Z95.1 Presence of aortocoronary bypass graft; Z98.51 Tubal ligation status; Z90.710 Acquired absence of both cervix and uterus; Z79.84 Long term (current) use of oral hypoglycemic drugs; Z79.899 Other long term (current) drug therapy; Z87.891 Personal history of nicotine dependence; Z68.36 Body mass index [BMI] 36.0-36.9, adult
CPT/HCPCS: 36415; 36416; 36556; 70450; 71045; 80048; 80053; 81003; 82140; 82533; 82550; 83605; 83690; 83880; 84443; 84484; 85007; 85025; 85027; 86704; 86706; 86803; 87040; 87324; 87340; 87449; 93005; 93306; 94640; 96361; 96365; 96375; C1752; J1644; J1825; J1956; J2405; J3370; J7620; J8499; Q0162

== ENCOUNTER 2024-05-20 14:02 | Emergency (ER) | payer MEDICARE, OTHER ==
[2024-05-20 14:53] LABS: #Basophils 0.03 10x3/uL (0.0-0.2); %Basophils 0.4 % (0.0-1.0); %Eosinophils 2.6 % (0.0-10.0); %Lymphocytes 17.2 % (21.0-51.0); %Monocytes 6.9 % (0.0-10.0); %Neutrophils 72.6 % (42.0-75.0); Hematocrit 39.2 % (36.0-47.0); Hemoglobin 13.3 g/dL (12.0-16.0); Mean Corpuscular HGB CONC 33.9 g/dL (32.0-36.0); Mean Corpuscular Hemoglobin 30.5 pg (27.0-31.0); Mean Corpuscular Volume 89.9 fL (78.0-98.0); Platelet Count 117 10x3/uL (130-400); RBC Distribution Width 14.3 % (11.5-14.5); Red Blood Cell (RBC) Count 4.36 mill/uL (4.20-5.40)
[2024-05-20 14:56] LABS: ALT (SGPT) 15 U/L (8-55); AST (SGOT) 16 U/L (5-34); Albumin 3.5 g/dL (3.4-4.8); Alkaline Phosphatase 100 U/L (40-110); Anion Gap 14 mmol/L (10-20); BUN (Urea Nitrogen) 22 mg/dL (9.8-20.1); Bilirubin, Total 0.8 mg/dL (0.2-1.2); Calc. Creatinine Clearance 0 mL/min (70-130); Calcium 9.8 mg/dL (7.8-10.44); Carbon Dioxide 25 mmol/L (23-31); Chloride 101 mmol/L (98-107); Estimated GFR 32; Globulin 3.6 g/dL (2.4-3.5); Glucose 396 mg/dL (83-110); Potassium 3.4 mmol/L (3.5-5.1); Protein, Total 7.1 g/dL (5.8-8.1); Sodium 137 mmol/L (136-145)
[2024-05-20 15:31] LABS: Anisocytosis SLIGHT = 6-15 cells HPF (0-5); Burr Cells SLIGHT = 2-5 cells HPF (0-1); Macrocytosis SLIGHT = 6-15 cells HPF (0-5); Platelet Adequacy Comment Platelets Decreased; Polychromasia SLIGHT = 2-3 cells HPF (0-2)
[2024-05-20 16:42] LABS: Bilirubin Negative (Negative); Blood, Urine 1+ (Negative); CAUTI Indications for Culture Dysuria,urgency,freq; Calcium Oxalate Crystals 3+ HPF (None Seen); Clarity Clear (Clear); Glucose, Urine (Dipstick) Greater than 1000 mg/dL (Negative); Ketone, Urine Negative (Negative); Leukocyte Negative Leu/uL (Negative); Nitrite Negative (Negative); Protein, Urine (Dipstick) 100 mg/dL (Neg-Trace); RBC/HPF 0-3 HPF (0-3); Specific Gravity, Urine 1.023 (1.002-1.036); Squamous Epithelial 0-3 HPF (0-3)
[2024-05-20 16:50] LABS: Bacteria/HPF Rare-Few HPF (None Seen)
[2024-05-20 16:51] LABS: Urine Culture Reflex No No
== END 2024-05-20 16:50 | disposition home or self-care (01) ==
LOC: ERS 14:02
DX: E11.65 Type 2 diabetes mellitus with hyperglycemia (principal); I10 Essential (primary) hypertension; E03.9 Hypothyroidism, unspecified; F17.210 Nicotine dependence, cigarettes, uncomplicated; E78.00 Pure hypercholesterolemia, unspecified; Z79.890 Hormone replacement therapy; Z79.899 Other long term (current) drug therapy; Z79.84 Long term (current) use of oral hypoglycemic drugs; Z79.82 Long term (current) use of aspirin
CPT/HCPCS: 71045; 80053; 81001; 83880; 85025; 93005; 96360